=== PATIENT | female | born 1980 | race Caucasian/White ===

== ENCOUNTER 2017-05-16 07:30 | Outpatient (RCR) | payer OTHER, SELFPAY ==
--- NOTE | 2017-03-22 13:03 | HP.PTEVAL ---
Patient's Visit Information HAMLET SAMUEL is a 37 year old F referred to Physical Therapy by Stephanie POLLOCK with a diagnosis of Cervical radiculopathy down LUE. Date of Evaluation: 03/19/17 Physical Therapist: Ady Mckenzie - Visit Plan Frequency: 2x /Week Duration: 4 Weeks Plan: Start with cervical distraction with flexion positioning, progressing to cervical extension progression. Once symptoms have reduced add in postural strengthening to maintain reduction. - Subjective Subjective: Pt. is here today for her initial evaluation with diagnosis of cervical radiculapothy down her LUE. Pt. reports having increased pain over the past 6 weeks or so with pain radiating down into her hand (thumb and index finger). She reports increased pain with: looking down, reading, driving, lifting and sleeping. Pt. has decreased pain: heat, massage and sometimes with chiropractor. 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 She reports intermittent tingling in L fingers, not all the time. She doesn't report any sudden weakness in her LUE. Pt. has not had an xray or MRI at this point in time. She is hopeful to increase posture and decerase symptoms allowing for increased tolerance to all work and recreational activities. - Pain L side of cervical spine Pain Intensity (Out of 10): 3 Pain Intensity Range: 2, 6 LUE Pain Intensity (Out of 10): 1 Pain Intensity Range: 0, 3 - Objective POSTURE: Pt. has slight rounded shoulders, slight FH positioning with increased upper cervical spine ext. Pt. is able to correct with VCing. No changes in symptoms with postural correction. PALPATION: Pt. has increased tenderness to palpation of LUT, L levator scapulea, mild increase in symptoms to palpation (spring testing, PA) to C5-T1, no hypomobility noted. NEUROLOGICAL: Pt. has normal sensation to light touch, except index finger and lateral aspect of forearm. Pt. has 1+ L biceps DTR, 2+ biceps and triceps otherwise. Pt. has no upper limb tension noted. ROM: CERVICAL SPINE: flexion min loss incerase NW, ext mod loss increase NW, rotation R min/nil loss NE, rotation L min/nil loss NE, SB nil loss bilat NE, retraction mod loss increase NW and peripherization. Pt. has normal shoulder ROM bilaterally throughout without increase in symptoms. MMT: RUE- wrist/elbow- 5/5 throughout; shoulder- flexion 5-/5, abd 5-/5, ext 5/5, ER 5/5, IR 5/5. LUE- wrist/elbow 5/5 throughout; shoulder- flexion 5-/5, abd 5-/5, ext 5/5, ER 5/5, IR 5/5. CERVICAL ISOMETRICS- 5/5 throughout. - Special Tests C/S Radiculapathy - Left Upper limb tension test: Negative C/S Radiculapathy - Right Upper limb tension test: Negative C/S Radiculapathy - Left Spurlings: Positive C/S Radiculapathy - Right Spurlings: Negative C/S Radiculapathy - Left Cervical distraction: Negative C/S Radiculapathy - Right Cervical distraction: Negative C/S Radiculapathy - Left Relief test: Positive C/S Radiculapathy - Right Relief test: Negative C/S Radiculapathy - Valsalva: Negative Sharp Efrain: Negative Vertebral Artery Test: Negative Alar Ligament Test: Negative Cervical Sitting: Protrusion - Mechanical Response: No effect Cervical Sitting: Protrusion - Symptoms During Testing: No effect Cervical Sitting: Protrusion - Symptoms After Testing: No effect Cervical Sitting: Retraction - Mechanical Response: No effect Cervical Sitting: Retraction - Symptoms During Testing: Peripheralizing Cervical Sitting: Retraction - Symptoms After Testing: No worse Cervical Sitting: Retraction-Extension - Mechanical Response: No effect Cerv Sitting: Retraction-Extension - Symptoms During Testing: Increases Cerv Sitting: Retraction-Extension - Symptoms After Testing: No worse Cervical Sitting: Sidebend Right - Mechanical Response: No effect Cervical Sitting: Sidebend Right - Symptoms During Testing: No effect Cervical Sitting: Sidebend Right - Symptoms After Testing: No effect Cervical Sitting: Sidebend Left - Mechanical Response: No effect Cervical Sitting: Sidebend Left - Symptoms During Testing: No effect Cervical Sitting: Sidebend Left - Symptoms After Testing: No effect Cervical Sitting: Rotation Right - Mechanical Response: No effect Cervical Sitting: Rotation Right - Symptoms During Testing: No effect Cervical Sitting: Rotation Right - Symptoms After Testing: No effect Cervical Sitting: Rotation Left - Mechanical Response: No effect Cervical Sitting: Rotation Left - Symptoms During Testing: No effect Cervical Sitting: Rotation Left - Symptoms After Testing: No effect Cervical Sitting: Flexion - Mechanical Response: No effect Cervical Sitting: Flexion - Symptoms During Testing: Increases Cervical Sitting: Flexion - Symptoms After Testing: No worse Cervical Lying: Retraction - Mechanical Response: No effect Cervical Lying: Retraction - Symptoms During Testing: Abolishes Cervical Lying: Extension - Mechanical Response: No effect Cervical Lying: Extension - Symptoms During Testing: Decreases Cervical Lying: Extension - Symptoms After Testing: No better - Goals Goal 1:: Pt. to be I with HEP. Goal Time Frame: 4-6 Weeks Goal 2:: Pt. to have increased cervical ROM by 50% without increase in symptoms. Goal Time Frame: 4-6 Weeks Goal 3:: Pt. to sleep with 0-1/10 symptoms in her neck and LUE. Goal Time Frame: 4-6 Weeks Goal 4:: Pt. to have 0-1/10 pain with all work activities. Goal Time Frame: 4-6 Weeks Goal 5:: Pt. to demonstrate proper posture throughout PT session demonstrating improved postural awareness. Goal Time Frame: 4-6 Weeks - Rehabilitation Potential Physical Therapy Diagnosis: Pt. has signs and symptoms consistent with cervical radiculopathy down her LUE with dural signs including slight reduction in biceps reflex, but no myotomal weakness. Pt. would benefit from PT to reduce muscle tension, decrease peripheralization symptoms, improve posture and decrease pain. Rehabilitation Potential: Good - Anticipated Interventions Patient/Client Instruction: Educate patient on: Condition, Plan of Care, Risk Factors, Benefits of Fitness Program For the Purpose of:: To improve health and function, To foster healthy habits, To improve decision making, To facilitate caregiver knowledge, To improve self management, To prevent re-injury, To improve ability to perform tasks related to life management, To improve tolerance to ADL's Therapeutic Exercise to Include: Strength training, Power training, Body mechanics, Postural training, Flexibilty training, Passive ROM, Active ROM, Tiffani Exercises, Scapular Strength/Stabilization For the Purpose of:: To decrease pain, To increase ROM, To improve nutrient delivery to tissue, To increase oxygenation perfusion, To improve muscle performance and motor function, To improve ability to perform ADL's, To improve performance and independence with ADL's Manual Therapy Techniques to Include: Trigger point massage, Mobilization, Manipulation, Functional dry needling, Soft tissue mobilization For the Purpose of:: To decrease pain, To increase ROM, To improve nutrient delivery to tissue, To increase oxygenation perfusion, To improve muscle performance and motor function IF ES: Yes Cryotherapy (ice pack, ice massage): Yes Ultrasound (thermal/non thermal): Yes For the Purpose of:: To decrease pain, To increase ROM, To improve nutrient delivery to tissue, To increase oxygenation perfusion Thank you for the opportunity to evaluate your patient. For Medicare and Medicare HMO plans, please review the plan of care and approve it. It will need to be FAXED BACK to us at [phone] for Medicare purposes. Please let me know if there are questions or concerns regarding this plan of care. Physician Signature: Date:
--- NOTE | 2017-05-27 07:43 | HP.PT.NRP ---
HP - Discharge Summary (1) - Patient Information HAMLET SAMUEL was seen in my office for initial evaluation on 03/19/17. The following Plan of Care was established for this patient: Initial Frequency: 2x /Week Initial Duration: 4 Weeks - Anticipated Interventions Patient/Client Instruction: Educate patient on: Condition, Plan of Care, Risk Factors, Benefits of Fitness Program For the Purpose of:: To improve health and function, To foster healthy habits, To improve decision making, To facilitate caregiver knowledge, To improve self management, To prevent re-injury, To improve ability to perform tasks related to life management, To improve tolerance to ADL's Therapeutic Exercise to Include: Strength training, Power training, Body mechanics, Postural training, Flexibilty training, Passive ROM, Active ROM, Tiffani Exercises, Scapular Strength/Stabilization For the Purpose of:: To decrease pain, To increase ROM, To improve nutrient delivery to tissue, To increase oxygenation perfusion, To improve muscle performance and motor function, To improve ability to perform ADL's, To improve performance and independence with ADL's Manual Therapy Techniques to Include: Trigger point massage, Mobilization, Manipulation, Functional dry needling, Soft tissue mobilization For the Purpose of:: To decrease pain, To increase ROM, To improve nutrient delivery to tissue, To increase oxygenation perfusion, To improve muscle performance and motor function IF ES: Yes Cryotherapy (ice pack, ice massage): Yes Ultrasound (thermal/non thermal): Yes For the Purpose of:: To decrease pain, To increase ROM, To improve nutrient delivery to tissue, To increase oxygenation perfusion This patient was last seen in our office 05/16/17. Pertinent comments regarding their Physical therapy will appear below: Pt. was seen for her cervical radiculopathy. Pt. reported 85% improvement with manual, stretching and postural management. Pt. was to trial exercises on own. Pt. did come in and report overall body achiness, and some low back pain. Pt. was scheduled to follow up with physician at this point in time. Pt. to trial on own and talk with physician to determine best course of action at this time. At this point I will be discontinuing this patient from physical therapy. I would be happy to see this patient again in the future if found appropriate by the physician. Thank you! Ady Mckenzie
== END 2017-05-16 19:00 | disposition home or self-care (01) ==
LOC: PT 07:30
PROVIDERS: Family Provider Internal Medicine; PCP Internal Medicine; Visit Provider Internal Medicine
DX: M54.2 Cervicalgia (principal); M54.12 Radiculopathy, cervical region
CPT/HCPCS: 97035; 97110; 97140; 97161

== ENCOUNTER 2017-10-01 10:30 | Outpatient (RCR) | payer OTHER, SELFPAY ==
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
--- NOTE | 2017-07-18 12:25 | HP.PTREVAL_ITS ---
Stephanie Villalpando, It has been my pleasure to treat HAMLET SAMUEL over the last 11 visits for NECK PAIN. BACK PAIN. FIBRO FLARE.. Please see the progress note below for an update on the physical therapy plan of care! Subjective: Pt. reports I am doing pretty well today. Pt. reports overall improved R shoulder ROM and decreased pain in lumbar spine and neck. Objective/Function: Pt. tolerated all PT without adverse reaction. Pt. presents with improved posture in standing and sitting. Pt. is able to maintain this throughout PT. Pt. reports being able to complete daily activities with better tolerance at this point in time. Plan Plan: Pt. to trial exercises on land and aquatic therapy on own at this point in time. Pt. will be DC from PT in 2-3 weeks if I have not seen her during that time frame. Goals Goal 1:: DECREASE C/O NECK PAIN Goal Time Frame: 4-6 Weeks Goal Progress: Goal Met Goal 2:: DECREASE C/O UPPER AND LOW BACK PAIN Goal Time Frame: 4-6 Weeks Goal Progress: Progressing Goal 3:: IMPROVE BENDING, LIFTING, REACHING, DRIVING, WORK AND SLEEP FUNCTION Goal Time Frame: 4-6 Weeks Goal Progress: Goal Met Goal 4:: INSTRUCT IN PROPHYLAXIS Goal Time Frame: 4-6 Weeks Goal Progress: Goal Met Anticipated Interventions Patient/Client Instruction: Educate patient on: Condition, Plan of Care, Risk Factors, Benefits of Fitness Program For the Purpose of:: To improve self management Therapeutic Exercise to Include: Strength training, Body mechanics, Postural training, Flexibilty training, Passive ROM, Active ROM, Dynamic Lumbar Stabilization, Scapular Strength/Stabilization For the Purpose of:: To improve ability of physical actions for home/community/ work/leisure Manual Therapy Techniques to Include: Passive ROM, Functional dry needling, Soft tissue mobilization For the Purpose of:: To decrease pain, To increase ROM Thermo therapy (hot pack): Yes Ultrasound (thermal/non thermal): Yes For the Purpose of:: To decrease pain, To increase ROM Please do not hesitate to contact me at [phone] by phone or Fax: if you have questions or concerns regarding this new plan of care! Sincerely, Ady Mckenzie
--- NOTE | 2017-11-14 09:51 | HP.PTDCNRP_ITS ---
HP - Discharge Summary (1) - Patient Information HAMLET SAMUEL was seen in my office for initial evaluation on 05/27/17. The following Plan of Care was established for this patient: Initial Frequency: 2-3x /Week Initial Duration: 4-6 Weeks - Anticipated Interventions Patient/Client Instruction: Educate patient on: Condition, Plan of Care, Risk Factors, Benefits of Fitness Program For the Purpose of:: To improve self management Therapeutic Exercise to Include: Strength training, Body mechanics, Postural training, Flexibilty training, Passive ROM, Active ROM, Dynamic Lumbar Stabilization, Scapular Strength/Stabilization For the Purpose of:: To improve ability of physical actions for home/community/ work/leisure Manual Therapy Techniques to Include: Passive ROM, Functional dry needling, Soft tissue mobilization For the Purpose of:: To decrease pain, To increase ROM Thermo therapy (hot pack): Yes Ultrasound (thermal/non thermal): Yes For the Purpose of:: To decrease pain, To increase ROM This patient was last seen in our office 10/11/17. Pertinent comments regarding their Physical therapy will appear below: Pt. was seen for her back and neck pain. Pt. was treated with manual techniques , DN, Jovita exercises and postural strengthening. Pt. progressed as expected. Pt. has not zbigniew seen in ~1 month and will be DC from PT at this point in time. At this point I will be discontinuing this patient from physical therapy. I would be happy to see this patient again in the future if found appropriate by the physician. Thank you! Ady Mckenzie
== END 2017-10-01 19:00 | disposition home or self-care (01) ==
LOC: PT 10:30
PROVIDERS: Family Provider Internal Medicine; PCP Internal Medicine; Visit Provider Internal Medicine
DX: M79.7 Fibromyalgia (principal); M54.9 Dorsalgia, unspecified; M54.2 Cervicalgia
CPT/HCPCS: 97110; 97140; 97162; 97530

== ENCOUNTER → 2017-11-18 16:50 | Outpatient (CLI) | payer OTHER, SELFPAY ==
[2017-11-18 17:54] LABS: Absolute Lymphocyte Count 4.35 X10^3/ul (0.83-4.51); Absolute Neutrophil Count 10.4 X10^3/uL (2.0-7.7); Basophil# 0.05 X10^3/uL; Basophil% 0.3 % (0-1); Eosinophil# 0.32 X10^3/uL; Hematocrit 37.3 % (37-47); Hemoglobin 12.3 g/dl (12.0-15.0); Lymphocyte # 4.35 X10^3/ul (4.0); Lymphocyte % 27.3 % (19-41); Mean Corpuscular Hgb 27.5 pg (27.0-32.0); Mean Corpuscular Volume 83.3 fL (81-99); Monocyte# 0.81 X10^3/uL; Monocyte% 5.1 % (0-10); Neutrophil # 10.36 X10^3/uL (2.7-7.7); Neutrophil % 65.2 % (47-70); Platelet Count 486 K/mm3 (150-450); RBC Distribution Width CV 14.1 % (11.6-14.6); RBC Distribution Width SD 42.8 fl (35.1-43.9); Red Blood Count 4.48 M/mm3 (4.2-5.4); White Blood Count 15.9 K/mm3 (4.4-11.0)
[2017-11-18 18:02] LABS: POSITIVE COUNT NO; POSITIVE DIFFERENTIAL NO; POSITIVE MORPHOLOGY NO
[2017-11-18 18:03] LABS: Erythrocyte Sedimentation Rate 24 mm/hr (0-20)
[2017-11-18 18:18] LABS: Vitamin B12 1041 pg/mL (211-911); Vitamin D,25 Hydroxy 32.2 ng/mL (29.95-100.01)
[2017-11-18 18:51] LABS: ALB/GLOB Ratio 0.9 RATIO (0.9-2.4); AST(SGOT) 17 U/L (15-37); Alanine Aminotransfer ALT/SGPT 29 U/L (13-56); Albumin, Serum 3.7 g/dL (3.2-5.0); Alkaline Phosphatase 91 U/L (45-117); Anion Gap 12 (5-15); BUN 17 mg/dL (7-18); BUN/Creat Ratio 17.7 RATIO (10-20); Calcium,Total 9.3 mg/dL (8.5-10.1); Chloride 100 mmol/L (98-107); Creatinine, Serum 0.96 mg/dL (0.55-1.02); EST Glomerular Filtration Rate 69 mL/min (>60); Est Glom Filt Rate - Afr Amer 83 mL/min (>60); Globulin 4.2 g/dL (2.2-4.2); Glucose 78 mg/dL (74-106); Protein, Total 7.9 g/dL (6.4-8.2); Rheumatoid Factor < 10.0 IU/mL (<15); Sodium Level 139 mmol/L (136-145); Thyroid Stim Hormone (TSH) 2.93 uIU/mL (0.358-3.74)
[2017-11-21 09:04] LABS: ANTINUCLEAR ANTIBODIES DIRECT Negative (Negative)
== END ==
PROVIDERS: Family Provider Internal Medicine; PCP Internal Medicine; Visit Provider Internal Medicine Rheumatology
DX: R53.83 Other fatigue (principal)
CPT/HCPCS: 36415; 80053; 82306; 82607; 82746; 84443; 85025; 85652; 86038; 86140; 86431

== ENCOUNTER → 2017-12-30 15:57 | Outpatient (CLI) | payer OTHER, SELFPAY ==
--- NOTE | 2017-12-30 15:59 | ECHOD_ITS ---
Reason For Study: VALVULAR HEART DISEASE Procedure This was a 2D Doppler, Color Flow transthoracic echocardiogram. The study was technically difficult. Exam performed in department. Left Ventricle Normal LV size. Left ventricular systolic function is normal. The estimated ejection fraction is 60 %. No evidence for diastolic dysfunction. No regional wall motion abnormalities noted. Right Ventricle Normal RV size. Normal systolic function. Atria Normal left atrium. Normal right atrium. Mitral Valve Normal mitral valve. Tricuspid Valve Normal tricuspid valve. Mild (1+) tricuspid valve insufficiency. Pulmonary artery systolic pressure is 26 mmHg. Aortic Valve Trisinus/trileaflet aortic valve. Pulmonic Valve Normal pulmonic valve. Great Vessels Normal aortic root. Pericardium/Pleural No pericardial effusion. MMode/2D Measurements & Calculations LVIDd: 4.0 cm IVSd: 0.91 cm Ao root diam: 3.1 cm LVIDs: 3.0 cm LVPWd: 0.95 cm RVDd: 3.1 cm FS: 24.9 % LAV(MOD-bp): 42.1 ml LVAd ap4: 25.9 cm2 SV(MOD-sp4): 39.9 ml LAV(MOD-bp) Indexed: 23.1 ml/m2 EDV(MOD-sp4): 73.8 ml LAV(MOD-sp2): 46.3 ml EDV(sp4-el): 76.2 ml LAV(MOD-sp4): 35.8 ml LVAs ap4: 15.5 cm2 ESV(MOD-sp4): 33.9 ml ESV(sp4-el): 34.0 ml EF(MOD-sp4): 54.1 % EF(sp4-el): 55.3 % SV(sp4-el): 42.2 ml LA A4 area: 15.3 cm2 LA dimension(2D): 4.1 cm RA A4 area: 13.8 cm2 Time Measurements MV dec time: 0.26 sec Doppler Measurements & Calculations MV E max mayur: 86.1 cm/sec Lat Peak E' Mayur: 10.6 cm/sec Med Peak E' Mayur: 7.2 cm/sec MV A max mayur: 77.7 cm/sec E/E' lat: 8.1 E/E' med: 12.0 MV E/A: 1.1 Ao V2 max: 139.2 cm/sec LV V1 max: 101.7 cm/sec PA V2 max: 98.2 cm/sec Ao max P.8 mmHg LV V1 max P.1 mmHg TR max mayur: 235.2 cm/sec TR max P.4 mmHg Interpretation Summary Normal LV size. Left ventricular systolic function is normal. The estimated ejection fraction is 60 %. No evidence for diastolic dysfunction. Ordering Physician: Kvng Sainz Referring Physician: MONA OBRIEN Performed By: Michelle Adam, SANTOS, RVT
== END ==
PROVIDERS: Family Provider Internal Medicine; PCP Internal Medicine; Referring Provider Internal Medicine Cardiovascular Disease; Visit Provider Internal Medicine Cardiovascular Disease
DX: I07.1 Rheumatic tricuspid insufficiency (principal); I10 Essential (primary) hypertension; I42.8 Other cardiomyopathies; I34.0 Nonrheumatic mitral (valve) insufficiency
CPT/HCPCS: 93306

== ENCOUNTER 2018-01-14 16:30 | Outpatient (RCR) | payer OTHER, SELFPAY ==
--- NOTE | 2017-12-11 17:25 | HP.PTEVAL_ITS ---
Patient's Visit Information HAMLET SAMUEL is a 37 year old F referred to Physical Therapy by Missy Solis with a diagnosis of LBP. Date of Evaluation: 12/11/17 Physical Therapist: Cassandra Cisneros - Visit Plan Frequency: 2x /Week Duration: 4 Weeks Plan: 2X/ week for 4 weeks for Core stability, body mechanics, postural stability with HEP - Subjective Subjective: Last Saturday she was doing Yoga with Pigme goats and she was fine and then she went to hot die picker a laundry basket the wrong way and she had instant pain that was hot searing pain along the LB. She has been since to the Chiropractor and she was out at L4/L5. Within 4 hours of the sdjustment she saw some improvement but is not better yet. Currently she has a dull ache along her L- spine and she is uncomfortable with bending fw and she has to bend her knees to get something off the floor. She is in one of the pool classes 2X/ week and she is not doing much at this time. Pt has no LE numbness and tingling. She is sleeping approx the same. SHe has Fibro and it messes wiht her sleep anyways. She walked a lot today and has noticed that her gait has shortened up a lot throughtout the day. She has had several x-rays and MRI's in the past she is dealing with scoliosis....chiropractor is helping with that as well as her own posture practices. She has not injured her back like this before but has been dealing with back pain in the past. 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 - Pain back pain Pain Intensity (Out of 10): 5 - Objective Gait: walks with normal gait pattern, caught L toe once during the walk. Pt is able to heel and toe walk without issue. Trunk AROM: flexion 100%, ext 25%, SB B 50%, Rot to the L 50% and to the R 75%. Pt is able to do almost full AROM press up. Patellar DTR's 2+/3 B. LE MMT: hip flex B 4-/5 B, hip ext 4/5 B, hip abd B 4/5 B, B knee flex and B knee ext 4+/5. SLR Test: -B - Goals Goal 1:: I HEP Goal Time Frame: 4-6 Weeks Goal 2:: Decrease back pain to 1/10 with ADL's Goal Time Frame: 4-6 Weeks Goal 3:: Be able to hot die picker laundry basket from the floor with proper form without backpain Goal Time Frame: 4-6 Weeks - Rehabilitation Potential Rehabilitation Potential: Good - Anticipated Interventions Patient/Client Instruction: Educate patient on: Plan of Care For the Purpose of:: To decrease pain, To increase ROM, To improve nutrient delivery to tissue, To improve muscle performance and motor function, To improve ability to perform ADL's, To increase tolerance to activity/condition/position, To improve performance and independence with ADL's Therapeutic Exercise to Include: Strength training, Body mechanics, Postural training, Active ROM, Dynamic Lumbar Stabilization, Tiffani Exercises For the Purpose of:: To decrease pain, To increase ROM, To improve nutrient delivery to tissue, To improve muscle performance and motor function, To improve ability to perform ADL's, To increase tolerance to activity/condition/position, To improve performance and independence with ADL's, To improve health of tissue Ultrasound (thermal/non thermal): Yes For the Purpose of:: To decrease pain, To improve nutrient delivery to tissue Thank you for the opportunity to evaluate your patient. For Medicare and Medicare HMO plans, please review the plan of care and approve it. It will need to be FAXED BACK to us at [phone] for Medicare purposes. Please let me know if there are questions or concerns regarding this plan of care. Physician Signature: Date:
--- NOTE | 2018-01-14 16:48 | HP.PTDCSUM_ITS ---
HP - PT D/C Summary It has been my pleasure to treat HAMLET SAMUEL under orders from Missy Solis NP, for the diagnosis of LBP for a total of 6 visit(s). Discharge Date: 01/14/18 Please see the following information for a summary of their discharge status. - Subjective Subjective: Pt had to drive 9 hours for the last 4 days and sitting at a confrence....so she is in pain from center of back to R buttcheek. She got her TENS unit the other day. 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 without pain - Pain back pain Pain Intensity (Out of 10): 5 - Overall Improvement % Improvement: 90 - Objective Objective/Function: Pt was able to do all her exercises today with good form and without complaint of pain - Goals Goal 1:: I HEP Goal Progress: Goal Met Goal 2:: Decrease back pain to 1/10 with ADL's Goal Progress: Progressing Goal 3:: Be able to milk pickup driver laundry basket from the floor with proper form without backpain Goal Progress: Goal Met - Plan Plan: DC PT to [facility] - D/C Information Discharge Comments: DC PT to [facility] and pt has TENS unit for home If there are questions or concerns regarding this patient's physical therapy, please feel free to call me at [phone]. Thank you for the referral of this patient. Sincerely, Cassandra Cisneros
== END 2018-01-14 19:00 | disposition home or self-care (01) ==
LOC: PT 16:30
PROVIDERS: Family Provider Internal Medicine; PCP Internal Medicine; Referring Provider Nurse Practitioner; Visit Provider Nurse Practitioner
DX: M54.5 Low back pain (principal)
CPT/HCPCS: 97110; 97161

== ENCOUNTER → 2018-03-06 15:33 | Outpatient (CLI) | payer OTHER, SELFPAY ==
[2018-01-17 08:41] VITALS: BMI 34.7
[2018-03-06 17:53] LABS: Absolute Lymphocyte Count 4.01 X10^3/ul (0.83-4.51); Absolute Neutrophil Count 10.3 X10^3/uL (2.0-7.7); Basophil# 0.04 X10^3/uL; Basophil% 0.3 % (0-1); Eosinophil# 0.39 X10^3/uL; Eosinophils% 2.5 % (0-5); Hematocrit 40.2 % (37-47); Hemoglobin 13.4 g/dl (12.0-15.0); Lymphocyte # 4.01 X10^3/ul (4.0); Lymphocyte % 25.8 % (19-41); Mean Corp Hgb Conc 33.3 g/gl (32-36); Mean Corpuscular Hgb 27.6 pg (27.0-32.0); Mean Corpuscular Volume 82.9 fL (81-99); Mean Platelet Vol. 8.9 fl (6.2-12.0); Monocyte% 5.1 % (0-10); Neutrophil # 10.29 X10^3/uL (2.7-7.7); Neutrophil % 66.2 % (47-70); Platelet Count 536 K/mm3 (150-450); RBC Distribution Width CV 14.9 % (11.6-14.6); RBC Distribution Width SD 45.6 fl (35.1-43.9); Red Blood Count 4.85 M/mm3 (4.2-5.4); White Blood Count 15.6 K/mm3 (4.4-11.0)
[2018-03-06 17:55] LABS: POSITIVE COUNT NO; POSITIVE DIFFERENTIAL NO; POSITIVE MORPHOLOGY NO
[2018-03-06 18:02] LABS: Anion Gap 11 (5-15); BUN 19 mg/dL (7-18); BUN/Creat Ratio 17.9 RATIO (10-20); Calcium,Total 8.8 mg/dL (8.5-10.1); Chloride 101 mmol/L (98-107); Creatinine, Serum 1.06 mg/dL (0.55-1.02); EST Glomerular Filtration Rate 62 mL/min (>60); Est Glom Filt Rate - Afr Amer 75 mL/min (>60); Glucose 73 mg/dL (74-106); Potassium 2.9 mmol/L (3.5-5.1); Sodium Level 138 mmol/L (136-145)
[2018-03-10 03:04] LABS: QNTFERON TB Mitogen Value > 10.00 IU/mL (.); QNTFERON TB Nil Value 0.02 IU/mL (.); QNTFERON TB1+ Ag Value 0.02 IU/mL (.); QNTFERON TB2+ Ag Value 0.02 IU/mL (.)
[2018-03-10 08:13] LABS: HEPATITIS B SURFACE AG Negative (Negative); Hep C Antibodies 0.2 s/co ratio (0.0-0.9); QNTIFERON TB Positive Criteria Negative (Negative)
== END ==
LOC: MTLAB 15:34
PROVIDERS: Family Provider Internal Medicine; PCP Internal Medicine; Referring Provider Dermatology Pediatric Dermatology; Visit Provider Dermatology Pediatric Dermatology
DX: L40.0 Psoriasis vulgaris (principal); Z79.899 Other long term (current) drug therapy
CPT/HCPCS: 36415; 80048; 85025; 86480; 86803; 87340

== ENCOUNTER → 2018-04-16 16:08 | Outpatient (CLI) | payer OTHER, SELFPAY ==
[2018-01-17 08:41] VITALS: BMI 34.7
[2018-04-16 17:53] LABS: Progesterone Level 0.29 ng/mL (See Comment)
[2018-04-21 11:27] LABS: HPV Reflexed? NOT INDICATED
== END ==
PROVIDERS: Visit Provider Obstetrics & Gynecology
DX: Z12.4 Encounter for screening for malignant neoplasm of cervix (principal); N94.3 Premenstrual tension syndrome
CPT/HCPCS: 36415; 84144; 88175; G0145

== ENCOUNTER → 2018-08-28 16:24 | Outpatient (CLI) | payer OTHER, SELFPAY ==
[2018-01-17 08:41] VITALS: BMI 34.7
--- NOTE | 2018-08-28 16:27 | BI_ITS ---
MAMMOGRAPHY - BILATERAL SCREENING 3-D TOMOSYNTHESIS REASON FOR EXAM: Female, 38 years old. Bilateral Screening 3-D tomosynthesis PERTINENT HISTORY: No significant family history. TECHNIQUE: 2-D mammograms and 3-D Tomosynthesis of the breast (s) were performed. CAD was performed. COMPARISON: None. Baseline examination. FINDINGS: The breast composition is almost entirely fat. Scattered benign calcifications are seen. No dense spiculated masses or suspicious microcalcifications are identified. No architectural distortion is identified. There is no skin thickening or retraction. There has been no significant change since the prior study. BI/SCREEN MAMM (CAD) W/YA BILAT IMPRESSION: No mammographic signs of malignancy. Routine yearly mammograms recommended. ASSESSMENT CATEGORY: BIRADS Category 2: Benign. A letter regarding these results will be sent to the patient by the facility within 30 days. FOLLOW UP RECOMMENDATION: Yearly follow up mammogram recommended. (A) Approximately 10% of breast cancers are not detected by mammography. A normal mammogram should not delay biopsy of a clinically suspicious abnormality. Electronically Signed: Nathan Parra MD at 17:31 EDT , Service support ,
== END ==
PROVIDERS: Family Provider Internal Medicine; PCP Internal Medicine; Referring Provider Obstetrics & Gynecology; Visit Provider Obstetrics & Gynecology
DX: Z12.31 Encounter for screening mammogram for malignant neoplasm of breast (principal)
CPT/HCPCS: 77063; 77067

== ENCOUNTER → 2018-09-08 12:07 | Outpatient (CLI) | payer OTHER, SELFPAY ==
[2018-01-17 08:41] VITALS: BMI 34.7
[2018-09-08 13:47] LABS: Absolute Lymphocyte Count 3.17 X10^3/ul (0.83-4.51); Absolute Neutrophil Count 7.3 X10^3/uL (2.0-7.7); Basophil# 0.05 X10^3/uL; Basophil% 0.4 % (0-1); Eosinophil# 0.59 X10^3/uL; Hematocrit 40.1 % (37-47); Hemoglobin 13.8 g/dl (12.0-15.0); Lymphocyte # 3.17 X10^3/ul (4.0); Mean Corp Hgb Conc 34.4 g/gl (32-36); Mean Corpuscular Hgb 28.5 pg (27.0-32.0); Mean Corpuscular Volume 82.9 fL (81-99); Mean Platelet Vol. 9.6 fl (6.2-12.0); Monocyte# 0.64 X10^3/uL; Monocyte% 5.5 % (0-10); Neutrophil # 7.26 X10^3/uL (2.7-7.7); Neutrophil % 61.8 % (47-70); Platelet Count 495 K/mm3 (150-450); RBC Distribution Width CV 14.6 % (11.6-14.6); Red Blood Count 4.84 M/mm3 (4.2-5.4); White Blood Count 11.7 K/mm3 (4.4-11.0)
[2018-09-08 13:51] LABS: POSITIVE COUNT NO; POSITIVE DIFFERENTIAL NO; POSITIVE MORPHOLOGY NO
[2018-09-08 14:41] LABS: ALB/GLOB Ratio 0.9 RATIO (0.9-2.4); AST(SGOT) 14 U/L (15-37); Alanine Aminotransfer ALT/SGPT 16 U/L (13-56); Albumin, Serum 3.6 g/dL (3.2-5.0); Alkaline Phosphatase 66 U/L (45-117); Anion Gap 5 (5-15); BUN 17 mg/dL (7-18); BUN/Creat Ratio 19.3 RATIO (10-20); Chloride 103 mmol/L (98-107); Creatinine, Serum 0.88 mg/dL (0.55-1.02); EST Glomerular Filtration Rate 76 mL/min (>60); Est Glom Filt Rate - Afr Amer 92 mL/min (>60); Glucose 82 mg/dL (74-106); Potassium 2.7 mmol/L (3.5-5.1); Protein, Total 7.6 g/dL (6.4-8.2); Sodium Level 137 mmol/L (136-145)
== END ==
PROVIDERS: Family Provider Internal Medicine; PCP Internal Medicine; Referring Provider Physician Assistant; Visit Provider Physician Assistant
DX: L40.0 Psoriasis vulgaris (principal); Z79.899 Other long term (current) drug therapy
CPT/HCPCS: 36415; 80053; 85025

== ENCOUNTER 2018-09-18 09:00 | Outpatient (RCR) | payer OTHER, SELFPAY ==
[2018-01-17 08:41] VITALS: BMI 34.7
== END 2018-09-18 19:00 | disposition home or self-care (01) ==
LOC: PT 09:00
PROVIDERS: Family Provider Internal Medicine; PCP Internal Medicine; Referring Provider Internal Medicine; Visit Provider Internal Medicine
DX: M79.7 Fibromyalgia (principal)

== ENCOUNTER 2019-01-14 16:35 | Outpatient (RCR) | payer SELFPAY ==
[2018-11-20 11:53] VITALS: BMI 34.7
== END 2019-01-14 19:00 | disposition home or self-care (01) ==
LOC: PT 16:35
PROVIDERS: Family Provider Internal Medicine; PCP Internal Medicine
DX: R69 Illness, unspecified (principal)

== ENCOUNTER 2019-01-24 15:32 | Emergency (ER) | payer OTHER, SELFPAY ==
[2019-01-20 12:48] VITALS: BMI 36.2
[2019-01-24 15:33] VITALS: BP 140/106; PULSE 109; RESP 17; TEMP 35.8; O2SAT 98; BMI 35.7
--- NOTE | 2019-01-24 15:49 | EKG12_ITS ---
Test Reason : CP Blood Pressure : / mmHG Vent. Rate : 096 BPM Atrial Rate : 096 BPM P-R Int : 144 ms QRS Dur : 078 ms QT Int : 362 ms P-R-T Axes : 012 -18 -02 degrees QTc Int : 457 ms Normal sinus rhythm Moderate voltage criteria for LVH, may be normal variant Borderline ECG Confirmed by LEXIE PERKINS, ANDREI ([id number]), restaurant expeditor SO [employer] ([id number]) on 01/27/2019 10:03:15 AM Referred By: FAN Confirmed By:ANDREI OWEN MD
--- NOTE | 2019-01-24 15:50 | ED.DCSUM_ITS ---
- ER Visit Summary Date of Service: 01/24/19 Chief Complaint: Shortness of breath and hypertension History of Present Illness: The patient is a 39 F who presents with shortness of breath and hypertension that began today. Patient states that began approximately 2 hours prior to arrival. Patient states she woke up from a nap and felt short of breath. Patient states she has some discomfort in her left upper chest. Patient states her breathing is worse with exertion. Patient states it got better when she took a shower. Patient denies any nausea or vomiting. Patient denies any diaphoresis. Patient denies any fevers or chills. Patient denies any cough. Patient noted her blood pressure to be slightly elevated today with a pressure of 150 systolic. Physical Examination: Vital signs are stable. Patient's blood pressure here is 140/106. Patient is afebrile. Patient is in no acute distress. Oral mucosa is pink and moist. Neck is supple. Trachea is midline. There is no JVD. Heart was regular rate and rhythm. Lungs are clear and equal bilaterally. Abdomen is soft and nontender. Extremities are intact. There is no calf tenderness or edema. Cranial nerves II through XII are intact. There are no focal motor or sensory deficits noted. Test Results: EKG showed a normal sinus rhythm with a rate of 96. There are no acute ST or T wave changes. It was unchanged compared to previous EKG dated 01/21/2015. CBC showed a mild leukocytosis of 13.7. Platelets were slightly elevated at 509. Basic metabolic profile was essentially within normal limits. Troponin and BNP were normal. PA and lateral chest x-ray was obtained. There is no acute process noted. This was interpreted by the radiologist and myself. Emergency Department Course and Treatment: Patient felt better on reevaluation. She was instructed to follow-up with her primary care physician in 5 to 7 days. Patient was instructed to return if worse in any way. Patient understood and was agreeable with the plan. All questions were answered. Disposition: Discharge home Impression: 1. Hypertension 2. Viral upper respiratory infection This note was generated with [employer] software. It may contain incorrect words, spelling, and punctuation that were not noted in review of the chart prior to signing ED Disposition - Plan for ED Patient: Disposition: Home or Assisted Living Diagnosis: Viral upper respiratory infection, Essential hypertension Instructions: HYPERTENSION, Established, URI, Viral, No Abx (Adult) Referrals: Stephanie Villalpando DO [Primary Care Provider] - 5-7 Days
--- NOTE | 2019-01-24 16:05 | RAD_ITS ---
STUDY: X-RAY CHEST REASON FOR EXAM: Female, 39 years old. Hypertension and shortness of breath TECHNIQUE: PA and lateral views of the chest. COMPARISON: 05/05/2015 FINDINGS: The lungs are clear and expanded. There is no demonstrated pleural abnormality. Normal size heart. Normal mediastinum and se. Normal visualized pulmonary arteries. Normal visualized aortic arch and descending thoracic aorta. Normal visualized thoracic spine. Normal visualized ribs, clavicles, and shoulders. There is no demonstrated abnormality of the visualized soft tissue structures of the upper abdomen. RAD/Chest PA and Lateral IMPRESSION: Normal x-ray examination of the chest. Electronically Signed: Ned Altamirano MD (Bro[place]) at 16:21 EST , Service support ,
[2019-01-24 16:15] LABS: Absolute Lymphocyte Count 3.49 X10^3/uL (0.83-4.51); Absolute Neutrophil Count 8.8 X10^3/uL (2.0-7.7); Basophil# 0.08 X10^3/uL; Basophil% 0.6 % (0-1); Eosinophil# 0.62 X10^3/uL; Eosinophils% 4.5 % (0-5); Hematocrit 40.4 % (37-47); Lymphocyte # 3.49 X10^3/ul (4.0); Lymphocyte % 25.5 % (19-41); Mean Corp Hgb Conc 34.7 g/dL (32-36); Mean Corpuscular Hgb 29.4 pg (27.0-32.0); Mean Corpuscular Volume 84.7 fL (81-99); Monocyte# 0.65 X10^3/uL; Monocyte% 4.7 % (0-10); NRBC Flagged by Analyzer 0 % (0-5); Neutrophil # 8.83 X10^3/uL (2.7-7.7); Neutrophil % 64.5 % (47-70); Platelet Count 509 K/mm3 (150-450); RBC Distribution Width CV 13.5 % (11.6-14.6); RBC Distribution Width SD 42.1 fl (35.1-43.9); Red Blood Count 4.77 M/mm3 (4.2-5.4); White Blood Count 13.7 K/mm3 (4.4-11.0)
[2019-01-24 16:29] LABS: Anion Gap 6 (5-15); BUN 16 mg/dL (7-18); Chloride 109 mmol/L (98-107); Creatinine, Serum 0.89 mg/dL (0.55-1.02); EST Glomerular Filtration Rate 75 mL/min (>60); Est Glom Filt Rate - Afr Amer 91 mL/min (>60); Estimated Creatinine Clearance 64.04 ml/min; Glucose 102 mg/dL (74-106); Potassium 4.1 mmol/L (3.5-5.1); Sodium Level 140 mmol/L (136-145)
[2019-01-24 16:46] LABS: BNP,B-Type NATRIURETIC PEPTIDE 5.4 pg/mL (0-100)
[2019-01-24 17:23] VITALS: BP 129/91; PULSE 67; RESP 16; O2SAT 99
== END 2019-01-24 17:24 | disposition home or self-care (01) ==
PROVIDERS: Emergency Provider Emergency Medicine; Family Provider Internal Medicine; PCP Internal Medicine
DX: J06.9 Acute upper respiratory infection, unspecified (principal); I10 Essential (primary) hypertension; M79.7 Fibromyalgia; Z87.891 Personal history of nicotine dependence
CPT/HCPCS: 71046; 80048; 83880; 84484; 85025; 93005; 99284; A4216

== ENCOUNTER → 2019-04-13 16:02 | Outpatient (CLI) | payer OTHER, SELFPAY ==
[2019-04-13 18:13] LABS: Absolute Lymphocyte Count 3.75 X10^3/uL (0.83-4.51); Absolute Neutrophil Count 8.4 X10^3/uL (2.0-7.7); Basophil# 0.08 X10^3/uL; Basophil% 0.6 % (0-1); Eosinophil# 0.92 X10^3/uL; Eosinophils% 6.6 % (0-5); Hematocrit 41.1 % (37-47); Hemoglobin 13.6 g/dL (12.0-15.0); Lymphocyte # 3.75 X10^3/ul (4.0); Lymphocyte % 26.8 % (19-41); Mean Corp Hgb Conc 33.1 g/dL (32-36); Mean Corpuscular Hgb 27.9 pg (27.0-32.0); Mean Corpuscular Volume 84.4 fL (81-99); Mean Platelet Vol. 9.6 fl (6.2-12.0); Monocyte# 0.83 X10^3/uL; Monocyte% 5.9 % (0-10); NRBC Flagged by Analyzer 0 % (0-5); Neutrophil # 8.37 X10^3/uL (2.7-7.7); Neutrophil % 59.7 % (47-70); Platelet Count 473 K/mm3 (150-450); RBC Distribution Width CV 14.4 % (11.6-14.6); RBC Distribution Width SD 44.1 fl (35.1-43.9); Red Blood Count 4.87 M/mm3 (4.2-5.4)
[2019-04-13 18:32] LABS: Anion Gap 6 (5-15); BUN 21 mg/dL (7-18); BUN/Creat Ratio 19.4 RATIO (10-20); Calcium,Total 9.5 mg/dL (8.5-10.1); Chloride 102 mmol/L (98-107); Creatinine, Serum 1.08 mg/dL (0.55-1.02); EST Glomerular Filtration Rate 60 mL/min (>60); Est Glom Filt Rate - Afr Amer 73 mL/min (>60); Glucose 73 mg/dL (74-106); Potassium 3.3 mmol/L (3.5-5.1); Sodium Level 135 mmol/L (136-145)
[2019-04-15 20:07] LABS: QNTFERON TB Mitogen Value > 10.00 IU/mL (.); QNTFERON TB Nil Value 0.02 IU/mL (.); QNTFERON TB1+ Ag Value 0.02 IU/mL (.); QNTFERON TB2+ Ag Value 0.03 IU/mL (.)
[2019-04-15 20:38] LABS: QNTIFERON TB Positive Criteria Negative (Negative)
== END ==
PROVIDERS: PCP Internal Medicine; Referring Provider Physician Assistant; Visit Provider Physician Assistant
DX: L40.0 Psoriasis vulgaris (principal); Z79.899 Other long term (current) drug therapy
CPT/HCPCS: 36415; 80048; 85025; 86480

== ENCOUNTER → 2019-04-20 16:55 | Outpatient (CLI) | payer OTHER, SELFPAY ==
[2019-04-20 18:16] LABS: Progesterone Level 0.42 ng/mL (See Comment)
== END ==
PROVIDERS: PCP Internal Medicine; Visit Provider Obstetrics & Gynecology
DX: F39 Unspecified mood [affective] disorder (principal)
CPT/HCPCS: 36415; 84144

== ENCOUNTER 2019-08-01 12:42 | Emergency (ER) | payer OTHER, SELFPAY ==
[2019-08-01 12:42] VITALS: BP 162/108; PULSE 114; RESP 16; TEMP 36.6; O2SAT 96; BMI 37.5
--- NOTE | 2019-08-01 12:50 | CT_ITS ---
STUDY: CT ABDOMEN AND PELVIS WITH CONTRAST REASON FOR EXAM: Female, 39 years old. LLQ pain intermittently x 6 weeks, diarrhea, elevated WBC. Hx fibromyalgia, hypertension, CHF. RADIATION DOSAGE (If Supplied By Facility): CTDIvol = ( 19.61 ) mGy, DLP = ( 1148.76 ) mGycm TECHNIQUE: Transaxial images were obtained from the dome of the diaphragm to the symphysis pubis without oral contrast. IV 100mL Isovue-300 was administered. Sagittal and coronal images were reconstructed. Individualized dose optimization techniques were used for this CT. COMPARISON: None. FINDINGS: The visualized lung bases are unremarkable. The visualized portions of the heart are within normal limits. Normal liver. Normal gallbladder and extrahepatic biliary system. Normal spleen. Normal pancreas. Normal bilateral adrenal glands. Normal right kidney. Normal left kidney. Normal visualized stomach. Normal small intestine. Normal colon. The appendix is visualized and appears normal. Normal abdominal aorta. Normal inferior vena cava. Normal retroperitoneum. Normal urinary bladder. Normal visualized uterus. There is a small umbilical hernia containing fat. Normal osseous structures. CT/Abdomen/Pelvis WITH Contrast IMPRESSION: No definite acute or significant abnormality seen. Electronically Signed: Hugh Spears MD at 15:16 EDT , Service support ,
--- NOTE | 2019-08-01 12:51 | ED.DCSUM_ITS ---
History of Present Illness Chief Complaint: Abd Pain Informant: Patient Onset: Yesterday Current Severity: Moderate Maximum Severity: Moderate Narrative: Patient presents with left lower quadrant pain that started yesterday. She does report having diarrhea. No fever or chills. She states 6 weeks ago she had similar pain but it resolved after taking anti-inflammatories and monitor during her diet. She denies urinary symptoms. She is a history of ovarian cyst but states this does not feel similar. Last menstrual cycle was 1 week ago. - Past Medical History (1) CHF (congestive heart failure) Status: Chronic (2) Ovarian cyst Status: Resolved (3) Essential hypertension Status: Chronic (4) AVNRT (AV nicole re-entry tachycardia) Status: Resolved (5) Non-ischemic cardiomyopathy Status: Resolved Past Medical History - Allergies and Home Meds Allergies/Adverse Reactions: Allergies ramipril Allergy (Verified 08/01/19 12:44) Vomiting fluconazole [From Diflucan] Adverse Reaction (Verified 08/01/19 12:44) Nausea Primary Care Physician: Stephanie Villalpando DO [Primary Care Provider] - Prior records reviewed: Yes Surgical History: no surgical history Lives: Spouse/ Significant Other Smoking Status: Former smoker Review of Systems General: Denies: Chills, Fever Eyes: Denies: Visual changes - bilaterally ENT: Denies: Bilateral ear pain Cardiovascular: Denies: Chest pain Respiratory: Denies: Dyspnea, Cough Gastrointestinal: Reports: Abdominal pain, Diarrhea. Denies: Nausea, Vomiting Genitourinary: Denies: Dysuria, Frequency Musculoskeletal: Denies: Back pain, Extremity Pain Skin: Denies: Rash Neurological: Denies: Headache Hematologic: Denies: Easy bruising, Easy bleeding Allergy: Denies: Uticaria Physical Exam Vital Signs/Narrative: Vital Signs Temp Pulse Resp BP Pulse Ox 08/01/19 12:42 97.9 F 114 H 16 162/108 H 96 Inital Vital Signs reviewed: Yes General: Well nourished, Well developed Head: Normocephalic ENT: Moist mucous membranes Neck: Supple Cardiovascular: Regular rate, Regular rhythm Respiratory: No distress, CTA bilaterally Abdomen: Soft, Tender - LLQ, Hypoactive bowel sounds. Negative for: Guarding, Rebound tenderness Extremities: Nontender Skin: Normal color, No rash Neurological: Alert, Oriented x3 Psychological: Normal affect Diagnostic/Tx/Re-eval Impressions Abdomen/Pelvis CT 08/01/19 12:50 IMPRESSION: No definite acute or significant abnormality seen. Electronically Signed: Hugh Spears MD at 15:16 EDT , Service support , 08/01/19 12:50 Abdomen/Pelvis WITH Contrast [CT] Stat Laboratory Results 08/01/19 08/01/19 08/01/19 13:00 13:05 13:05 WBC 15.1 H RBC 4.72 Hgb 13.2 Hct 40.5 MCV 85.8 MCH 28.0 MCHC 32.6 RDW Std Deviation 42.2 RDW Coeff of [place] 13.5 Plt Count 470 H MPV 9.0 Immature Gran % (Auto) 0.200 Neut % (Auto) 61.7 Lymph % (Auto) 28.0 [place] % (Auto) 4.8 Eos % (Auto) 4.8 Baso % (Auto) 0.5 Absolute Neuts (auto) 9.3 H Absolute Lymphs (auto) 4.24 Nucleated RBC % 0 Sodium 139 Potassium 3.5 Chloride 106 Carbon Dioxide 26.0 Anion Gap 7 BUN 11 Creatinine 0.92 Estim Creat Clear Calc 61.95 Est GFR (MDRD) Af Amer 87 Est GFR (MDRD) Non-Af 72 BUN/Creatinine Ratio 12.0 Glucose 82 Calcium 8.9 Serum , Qual Urine Color Yellow Urine Clarity Sl. Cloudy Urine pH 6.0 Ur Specific [place] 1.015 Urine Protein 30 H Urine Glucose (UA) Normal Urine Ketones 5 H Urine Occult Blood 10 H Urine Nitrite Negative Urine Bilirubin Negative Urine Urobilinogen 1 H Ur Leukocyte Esterase 100 H Urine RBC 0 SEEN Urine WBC 0-5 SEEN Ur Squamous Epith Cells 5-10 SEEN Ur Renal Epithelial Cell 0-5 SEEN Amorphous Sediment 1+ Urine Bacteria 3+ Urine Mucus 0 SEEN 08/01/19 13:05 WBC RBC Hgb Hct MCV MCH MCHC RDW Std Deviation RDW Coeff of [place] Plt Count MPV Immature Gran % (Auto) Neut % (Auto) Lymph % (Auto) [place] % (Auto) Eos % (Auto) Baso % (Auto) Absolute Neuts (auto) Absolute Lymphs (auto) Nucleated RBC % Sodium Potassium Chloride Carbon Dioxide Anion Gap BUN Creatinine Estim Creat Clear Calc Est GFR (MDRD) Af Amer Est GFR (MDRD) Non-Af BUN/Creatinine Ratio Glucose Calcium Serum , Qual NEGATIVE Urine Color Urine Clarity Urine pH Ur Specific [place] Urine Protein Urine Glucose (UA) Urine Ketones Urine Occult Blood Urine Nitrite Urine Bilirubin Urine Urobilinogen Ur Leukocyte Esterase Urine RBC Urine WBC Ur Squamous Epith Cells Ur Renal Epithelial Cell Amorphous Sediment Urine Bacteria Urine Mucus - Medical Decision Making Patient was given morphine, Zofran, and IV fluids here. Test results are discussed with her at bedside. This time she does have bacteria noted in her urine, however there are no significant white cells and large number of epithelial cells are noted. She is had no vaginal discharge. There is no significant inflammation noted in left lower quadrant to explain her current symptoms. She advised to follow bland diet. She will be given prescription for [place] to help control pain. She is to return for worsening pain, fever, any ot her concerns. ED Disposition - Plan for ED Patient: Disposition: Home or Assisted Living Diagnosis: Abdominal pain Instructions: ED Abdominal Pain Unkn Cause Fem Prescriptions: Hydrocodone Bitart/Apap 5-325 [[place] 5MG-325MG] 1 tablet PO Q6H PRN PRN 3 Days #10 tablet PRN Reason: Pain Transmission Status: Received by [id number] Referrals: Stephanie Villalpando DO [Primary Care Provider] - 1 Week if not improving
[2019-08-01 13:03] LABS: Mucous, Urine 0 SEEN /hpf (<or=2+); Red Blood Cells-Urine 0 SEEN /hpf (0-5)
[2019-08-01 13:10] LABS: Color, Urine Yellow (Yellow); Glucose, Dipstick Normal (Normal); Ketone-Dipstick 5 mg/dl (Negative); Leukocyte Esterase-Dipstick 100 /ul (Negative); Nitrite-Dipstick Negative (Negative); Occult Blood-Urine 10 /ul (Negative); Protein-Dipstick 30 mg/dl (Negative); Specific Gravity, Urine 1.015 (1.002-1.030); Urine Bilirubin Dipstick Negative (Negative); Urine Clarity Sl. Cloudy (Clear); Urine Urobilinogen 1 mg/dl (Normal)
[2019-08-01] MEDS: 0.9% Normal Saline 1,000 ML 150 ML IV (13:11)
[2019-08-01] MEDS: Ondansetron 4 MG/2 ML Vial IV (13:12)
[2019-08-01] MEDS: Morphine 4 MG/ML Syringe IV (13:12)
[2019-08-01 13:17] VITALS: BP 154/108; PULSE 104; RESP 16; O2SAT 96
[2019-08-01 13:18] LABS: Bacteria 3+ /hpf (None Seen); Squamous Epithelial Cells - UA 5-10 SEEN /hpf (5-10)
[2019-08-01 13:21] LABS: Amorphous Sediment 1+; Renal Epithelial Cells 0-5 SEEN /hpf (0-5)
[2019-08-01 13:22] LABS: White Blood Cells 0-5 SEEN /hpf (0-5)
[2019-08-01 13:26] LABS: Absolute Lymphocyte Count 4.24 X10^3/uL (0.83-4.51); Absolute Neutrophil Count 9.3 X10^3/uL (2.0-7.7); Basophil# 0.08 X10^3/uL; Basophil% 0.5 % (0-1); Eosinophil# 0.73 X10^3/uL; Eosinophils% 4.8 % (0-5); Hematocrit 40.5 % (37-47); Hemoglobin 13.2 g/dL (12.0-15.0); Lymphocyte # 4.24 X10^3/ul (4.0); Mean Corp Hgb Conc 32.6 g/dL (32-36); Mean Corpuscular Volume 85.8 fL (81-99); Monocyte# 0.73 X10^3/uL; Monocyte% 4.8 % (0-10); NRBC Flagged by Analyzer 0 % (0-5); Neutrophil # 9.31 X10^3/uL (2.7-7.7); Neutrophil % 61.7 % (47-70); POSITIVE MORPHOLOGY YES; Platelet Count 470 K/mm3 (150-450); RBC Distribution Width CV 13.5 % (11.6-14.6); RBC Distribution Width SD 42.2 fl (35.1-43.9); Red Blood Count 4.72 M/mm3 (4.2-5.4); White Blood Count 15.1 K/mm3 (4.4-11.0)
[2019-08-01 13:33] LABS: Internal QC Validated? YES +Cl - CLEAR BKGD; Pregnancy, Serum, hCG Quali. NEGATIVE Negative
[2019-08-01 13:36] LABS: Anion Gap 7 (5-15); BUN 11 mg/dL (7-18); Calcium,Total 8.9 mg/dL (8.5-10.1); Chloride 106 mmol/L (98-107); Creatinine, Serum 0.92 mg/dL (0.55-1.02); EST Glomerular Filtration Rate 72 mL/min (>60); Est Glom Filt Rate - Afr Amer 87 mL/min (>60); Estimated Creatinine Clearance 61.95 ml/min; Glucose 82 mg/dL (74-106); Potassium 3.5 mmol/L (3.5-5.1); Sodium Level 139 mmol/L (136-145)
[2019-08-01 13:40] LABS: Differential Indicated SCAN CRITERIA MET
[2019-08-01 15:00] VITALS: RESP 16
[2019-08-01 15:42] VITALS: BP 140/110; PULSE 94; RESP 16; O2SAT 97
--- NOTE | 2019-08-01 15:43 | ED.RN ---
REVIEWED D/C INSTRUCTIONS, FOLLOW UP CARE, PRESCRIPTION, AND S/S THAT WOULD WARRANT A RETURN TO THE ED WITH PT. PT VERBALIZED AN UNDERSTANDING AND DENIES FURTHER QUESTIONS FOR THIS RN. PT SKIN P/W/D, RESP EVEN AND UNLABORED, PT A&O X 3, NO DISTRESS NOTED. PT AMBULATED OUT OF ED, GAIT STEADY.
== END 2019-08-01 15:44 | disposition home or self-care (01) ==
PROVIDERS: Emergency Provider Emergency Medicine; PCP Internal Medicine
DX: R10.32 Left lower quadrant pain (principal); R19.7 Diarrhea, unspecified; I11.0 Hypertensive heart disease with heart failure; I50.9 Heart failure, unspecified; M79.7 Fibromyalgia; Z87.891 Personal history of nicotine dependence; Z88.3 Allergy status to other anti-infective agents
CPT/HCPCS: 74177; 80048; 81001; 84703; 85025; 96361; 96374; 96375; 99283; J7030; Q9967; A4216; J2405

== ENCOUNTER → 2019-09-22 16:06 | Outpatient (CLI) | payer OTHER, SELFPAY ==
[2019-09-24 16:09] LABS: Endomysial Antibody IgA Negative (Negative)
[2019-09-24 18:22] LABS: Immunoglobulin A 191 mg/dL (87-352); t-Transglutaminase IgA <2 U/mL (0-3)
== END ==
PROVIDERS: PCP Internal Medicine; Referring Provider Internal Medicine Gastroenterology; Visit Provider Internal Medicine Gastroenterology
DX: R19.7 Diarrhea, unspecified (principal); R10.84 Generalized abdominal pain
CPT/HCPCS: 36415; 82784; 83516; 86140; 86255

== ENCOUNTER → 2019-10-02 15:16 | Outpatient (CLI) | payer OTHER, SELFPAY ==
--- NOTE | 2019-10-02 | COLBX_PTH ---
PATIENT: HAMLET SAMUEL LOC: [facility] U#:[id number] AGE/SX: 45/F ROOM: RE10/02/[address]: Dr. Rebel Vigil MD : 1980 BED: DIS: SPEC #: [id number] RECD: 10/02/19 14:51 STATUS: ERIC LYNDA #: [id number] AMALIA: 10/02/19 00:[address]: Rebel Vigil DEPT: SURGICAL PATHOLOGY RECD BY: Josef Mahmood ENTERED: 10/05/19 08:22 SP TYPE: COLON BX OTHR DR: Dr. Stephanie Villalpando, [facility], [place] Tissues: A - Ileum, NOS B - COLON BIOPSY Procedures: Trichrome (control) Special Stain Group II Surgery Specimen Level IV HEADER OPERATION: Colonoscopy with biopsies PRE-OP DIAGNOSIS: Diarrhea TISSUE SUBMITTED: A - Terminal ileum biopsies, rule out Crohn's, B - Right and left colon biopsies, rule out microscopic colitis MICROSCOPIC DIAGNOSIS A. Terminal ileum, biopsy: A fragment of small intestinal mucosa, no pathologic diagnosis. B. Right and left colon, biopsy: Fragments of colonic mucosa with changes consistent with collagenous colitis. See comment. SJ:doris 10/06/19 COMMENT B. Trichrome stain with matched control is used in the evaluation of the specimen and shows focal thickening of subepithelial collagen band. Mild increase of eosinophils are also noted suspicious for eosinophilic gastroenteritis. Correlation with clinical, endoscopic findings and appropriate follow up are necessary. This case has been reviewed in consultation with Dr. Oconnell who concurs with the above diagnosis. MICROSCOPIC DESCRIPTION Slides are reviewed. GROSS DESCRIPTION A - Received in fixative is one container labeled with the patient's name and designated terminal ileum biopsy. The specimen consists of one irregular fragment of light christine soft tissue that measures 0.5 x 0.3 x 0.1 cm. The specimen is totally submitted in one cassette. B - Received in fixative is one container labeled with the patient's name and designated right and left colon biopsies. The specimen consists of multiple irregular fragments of light christine soft tissue that in aggregate measure 1.5 x 0.6 x 0.1 cm. The specimen is totally submitted in one cassette. / VELMA:doris 10/05/19 TC:3 CPT: 15819 x2, 97802
== END ==
PROVIDERS: PCP Internal Medicine; Referring Provider Internal Medicine Gastroenterology; Visit Provider Internal Medicine Gastroenterology
DX: K52.9 Noninfective gastroenteritis and colitis, unspecified (principal)
CPT/HCPCS: 88305; 88313

== ENCOUNTER 2019-12-02 16:30 | Outpatient (RCR) | payer SELFPAY | END 2019-12-02 19:00 | disposition home or self-care (01) | LOC: PT 16:30 | PROVIDERS: PCP Internal Medicine | DX: M54.5 Low back pain (principal) ==

== ENCOUNTER 2020-03-01 13:25 | Outpatient (RCR) | payer SELFPAY ==
[2020-02-22 11:08] VITALS: BMI 37.5
== END 2020-03-01 19:00 | disposition home or self-care (01) ==
LOC: PT 13:25
PROVIDERS: PCP Internal Medicine
DX: Z00.00 Encounter for general adult medical examination without abnormal findings (principal)

== ENCOUNTER → 2020-07-05 16:32 | Outpatient (CLI) | payer OTHER, SELFPAY ==
[2020-04-28 15:48] VITALS: BMI 37.6
[2020-07-08 03:07] LABS: QNTFERON TB Mitogen Value > 10.00 IU/mL (.); QNTFERON TB Nil Value 0 IU/mL (.); QNTFERON TB1+ Ag Value 0.03 IU/mL (.); QNTFERON TB2+ Ag Value 0 IU/mL (.)
[2020-07-08 08:41] LABS: QNTIFERON TB Positive Criteria Negative (Negative)
== END ==
PROVIDERS: PCP Internal Medicine; Referring Provider Physician Assistant Medical; Visit Provider Physician Assistant Medical
DX: L40.0 Psoriasis vulgaris (principal); L60.8 Other nail disorders; Z79.899 Other long term (current) drug therapy
CPT/HCPCS: 36415; 86480

== ENCOUNTER 2020-09-27 08:00 | Outpatient (RCR) | payer OTHER, SELFPAY ==
[2020-04-28 15:48] VITALS: BMI 37.6
== END 2020-09-27 19:00 | disposition home or self-care (01) ==
LOC: PT 08:00
PROVIDERS: PCP Internal Medicine
DX: Z00.00 Encounter for general adult medical examination without abnormal findings (principal)

== ENCOUNTER → 2020-12-20 | Outpatient (CLI) | payer OTHER, SELFPAY ==
[2020-12-23 08:09] LABS: Chlamydia By Nucleic Acid AMP Negative (Negative)
[2020-12-23 13:25] LABS: Gonococcus By Nucleic Acid AMP Negative (Negative)
[2020-12-26 17:21] LABS: HPV APTIMA, High Risk Negative (Negative)
== END | disposition home or self-care (01) ==
LOC: LABSPEC 16:12
PROVIDERS: PCP Internal Medicine; Referring Provider Nurse Practitioner Women's Health; Visit Provider Nurse Practitioner Women's Health
DX: Z01.419 Encounter for gynecological examination (general) (routine) without abnormal findings (principal); Z11.3 Encounter for screening for infections with a predominantly sexual mode of transmission
CPT/HCPCS: 87491; 87591; 87624; 88175; G0145

== ENCOUNTER → 2021-02-02 16:23 | Outpatient (CLI) | payer OTHER, SELFPAY ==
--- NOTE | 2021-02-02 16:18 | BI_ITS ---
MAMMOGRAPHY - BILATERAL SCREENING REASON FOR EXAM: Female, 41 years old. Routine annual screening examination. PERTINENT HISTORY: Non-contributory. TECHNIQUE: Digital bilateral breast ya (3D mammographic acquisition) in the CC and MLO projections. 2-D mediolateral oblique (MLO) and craniocaudad (CC) views of both breasts were obtained. CAD: Full Field Digital Mammography with Computer Added Detection was performed. COMPARISON: Comparison is made with prior study dated 08/28/2018. FINDINGS: Breast Composition: The breasts are almost entirely fatty. There are no dominant masses or suspicious calcifications. No other significant abnormalities are identified. There has been no significant change since the prior study. BI/SCRN MAMM (CAD)W/YA BILAT IMPRESSION: Stable bilateral screening mammogram. Yearly follow-up mammogram recommended. (A) ASSESSMENT CATEGORY: BIRADS Category 1: Negative. A letter regarding these results will be sent to the patient by the facility within 30 days. Approximately 10% of breast cancers are not detected by mammography. A normal mammogram should not delay biopsy of a clinically suspicious abnormality. [id number] Electronically Signed: John Cordova MD at 8:28 EST , Service support ,
== END ==
PROVIDERS: PCP Internal Medicine; Referring Provider Nurse Practitioner Women's Health; Visit Provider Nurse Practitioner Women's Health
DX: Z12.31 Encounter for screening mammogram for malignant neoplasm of breast (principal)
CPT/HCPCS: 77063; 77067

== ENCOUNTER 2021-03-23 17:47 | Outpatient (CLI) | payer OTHER, SELFPAY ==
--- NOTE | 2021-03-23 18:05 | RAD_ITS ---
STUDY: X-RAY - PELVIS AND LEFT HIP REASON FOR EXAM: Female, 41 years old. Technologist Notes pt states left hip pain after injury walking a dog x 3 days ago TECHNIQUE: XR Hip Unilateral with Pelvis when performed; 2-3 Views COMPARISON: None. FINDINGS: There is a non-specific bowel gas pattern. Normal visualized soft tissue structures. Normal bilateral iliac wings, sacroiliac joints and visualized sacrum. Normal bilateral superior and inferior pubic rami. Normal pubic symphysis. Normal bilateral ischial tuberosities. Normal visualized femoral head. Normal acetabulum. Normal hip joint. RAD/HIP, UNI W/ Pelvis 2-3 Views IMPRESSION: There are no acute findings Electronically Signed: Jossue Pereira MD at 20:15 EST , Service support ,
== END 2021-03-23 23:59 | disposition short-term general hospital (02) ==
LOC: RAD 17:48
PROVIDERS: PCP Internal Medicine; Visit Provider Physician Assistant
DX: M25.552 Pain in left hip (principal)
CPT/HCPCS: 73502

== ENCOUNTER 2021-05-31 18:30 | Outpatient (RCR) | payer OTHER, SELFPAY | END 2021-05-31 19:00 | disposition home or self-care (01) | LOC: PT 18:30 | PROVIDERS: PCP Internal Medicine | DX: Z00.00 Encounter for general adult medical examination without abnormal findings (principal) ==

== ENCOUNTER → 2021-12-01 | Outpatient (CLI) | payer OTHER, SELFPAY ==
[2021-12-05 15:08] LABS: QNTFERON TB Mitogen Value > 10.00 IU/mL (.); QNTFERON TB Nil Value 0.01 IU/mL (.); QNTFERON TB1+ Ag Value 0.03 IU/mL (.); QNTFERON TB2+ Ag Value 0.03 IU/mL (.)
[2021-12-07 12:49] LABS: QNTIFERON TB Positive Criteria Negative (Negative)
== END | disposition home or self-care (01) ==
LOC: MTLAB 16:09
PROVIDERS: PCP Internal Medicine; Referring Provider Physician Assistant Medical; Visit Provider Physician Assistant Medical
DX: L40.0 Psoriasis vulgaris (principal); L40.59 Other psoriatic arthropathy; Z79.899 Other long term (current) drug therapy
CPT/HCPCS: 36415; 86480

== ENCOUNTER 2022-01-03 18:30 | Outpatient (RCR) | payer OTHER, SELFPAY ==
--- NOTE | 2021-10-03 09:29 | HP.PTEVAL_ITS ---
Patient's Visit Information HAMLET SAMUEL is a 41 year old F referred to Physical Therapy by Self Referred with a diagnosis of . Date of Evaluation: 10/03/21 Physical Therapist: Ady Mckenzie DPT - Visit Plan Frequency: 1x/Week Duration: PRN Plan: Start with Dn to B cervical erector spinea, B lumbar erector spinae, B UT and B lateral epicondyles. - Subjective Pt. is here today for her self pay Dn eval. Pt. is known to this PT. She is ove rall doing well, but feels tight in B UTs, B cervical spine, pain in B lateral epicondyles and stiffness in her low back. She reports being active, and just feeling tight. No other injuries, not overly painful today. Pt. 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 No NT, no radicular symptoms. No , no fear of needles. Pt. request to not inform physician at this point in time. - Objective Pt. is tight in B UT, B cervical erector spinae with rotation, Lumbar extensors limiting flexion and has slight pain to palpation of B lateral epicondyles. No signs of more sinister injury rather than just muscle tightness. - Balance/Special Test Scores Oswestry Neck Score: 3 - Goals Goal 1:: Pt. to report overall decreased tightness in cervical and lumbar musculature. Goal Time Frame: 2-4 Weeks - Rehabilitation Potential Rehabilitation Potential: Excellent - Anticipated Interventions Patient/Client Instruction: Educate patient on: Condition, Plan of Care For the Purpose of:: To facilitate caregiver knowledge, To improve self management, To prevent re-injury, To improve ability to perform tasks related to life management Manual Therapy Techniques to Include: Functional dry needling, Soft tissue mobilization For the Purpose of:: To decrease pain, To decrease swelling/inflammation, To improve nutrient delivery to tissue, To decrease soft tissue restriction, To increase flexibility/ROM Thank you for the opportunity to evaluate your patient. For Medicare and Medicare HMO plans, please review the plan of care and approve it. It will need to be FAXED BACK to us at [phone] for Medicare purposes. For Medicare only, by signing this I certify the plan of care. Please let me know if there are questions or concerns regarding this plan of care. Physician Signature: Date:
== END 2022-01-03 19:00 | disposition home or self-care (01) ==
LOC: PT 18:30
PROVIDERS: PCP Internal Medicine
DX: Z00.00 Encounter for general adult medical examination without abnormal findings (principal)

== ENCOUNTER → 2022-08-30 | Outpatient (CLI) | payer OTHER, SELFPAY ==
--- NOTE | 2022-08-30 11:49 | BI_ITS ---
MAMMOGRAPHY - BILATERAL SCREENING REASON FOR EXAM: Female, 42 years old. Routine annual screening examination. PERTINENT HISTORY: Mother with breast cancer. TECHNIQUE: Digital bilateral breast ya (3D mammographic acquisition) in the CC and MLO projections. 2-D mediolateral oblique (MLO) and craniocaudad (CC) views of both breasts were obtained. CAD: Full Field Digital Mammography with Computer Added Detection was performed. COMPARISON: Comparison is made with prior study February 02, 2021 and August 28, 2018. FINDINGS: Breast Composition: The breasts are almost entirely fatty. There are no dominant masses or suspicious calcifications. Stable small left axillary lymph nodes. No other significant abnormalities are identified. There has been no significant change since the prior study. BI/SCRN MAMM (CAD)W/YA BILAT IMPRESSION: Stable bilateral screening mammogram. Yearly follow-up mammogram recommended. (A) ASSESSMENT CATEGORY: BIRADS Category 2: Benign. A letter regarding these results will be sent to the patient by the facility within 30 days. Approximately 10% of breast cancers are not detected by mammography. A normal mammogram should not delay biopsy of a clinically suspicious abnormality. [id number] Electronically Signed: John Cordova MD at 12:52 EDT ,
== END | disposition home or self-care (01) ==
LOC: OPBI 11:48
PROVIDERS: PCP Internal Medicine; Referring Provider Nurse Practitioner Women's Health; Visit Provider Nurse Practitioner Women's Health
DX: Z12.31 Encounter for screening mammogram for malignant neoplasm of breast (principal); Z80.3 Family history of malignant neoplasm of breast
CPT/HCPCS: 77063; 77067

== ENCOUNTER → 2022-10-03 | Outpatient (CLI) | payer OTHER, SELFPAY ==
[2022-10-03 12:26] LABS: Absolute Lymphocyte Count 4.43 X10^3/uL (0.83-4.51); Absolute Neutrophil Count 11.2 X10^3/uL (2.0-7.7); Basophil# 0.16 X10^3/uL; Basophil% 0.9 % (0-1); Eosinophil# 1.46 X10^3/uL; Eosinophils% 7.8 % (0-5); Hematocrit 52.4 % (37-47); Hemoglobin 17.3 g/dL (12.0-15.0); Lymphocyte # 4.43 X10^3/ul (0.83-4.51); Lymphocyte % 23.8 % (19-41); Mean Corpuscular Hgb 28.4 pg (27.0-32.0); Mean Corpuscular Volume 85.9 fL (81-99); Mean Platelet Vol. 9.1 fl (6.2-12.0); Monocyte# 1.23 X10^3/uL; Monocyte% 6.6 % (0-10); NRBC Flagged by Analyzer 0 % (0-5); Neutrophil # 11.24 X10^3/uL (2.7-7.7); Neutrophil % 60.5 % (47-70); Platelet Count 638 K/mm3 (150-450); RBC Distribution Width CV 14.4 % (11.6-14.6); White Blood Count 18.6 K/mm3 (4.4-11.0)
[2022-10-03 13:09] LABS: Anion Gap 8 (5-15); BUN 21 mg/dL (7-18); BUN/Creat Ratio 19.8 RATIO (10-20); Calcium,Total 10.5 mg/dL (8.5-10.1); Chloride 101 mmol/L (98-107); Creatinine, Serum 1.06 mg/dL (0.55-1.02); EST Glomerular Filtration Rate 60 mL/min (>60); Est Glom Filt Rate - Afr Amer 73 mL/min (>60); Glucose 114 mg/dL (74-106); Magnesium 2.3 mg/dL (1.6-2.6); Potassium 4.2 mmol/L (3.5-5.1); Sodium Level 135 mmol/L (136-145)
== END | disposition home or self-care (01) ==
LOC: LAB 11:52
PROVIDERS: PCP Internal Medicine; Referring Provider Nurse Practitioner Gerontology; Visit Provider Nurse Practitioner Gerontology
DX: I10 Essential (primary) hypertension (principal); R00.0 Tachycardia, unspecified
CPT/HCPCS: 36415; 80048; 83735; 84443; 85025

== ENCOUNTER → 2022-10-08 | Outpatient (CLI) | payer OTHER, SELFPAY | END | disposition home or self-care (01) | LOC: PSN 12:24 | PROVIDERS: PCP Internal Medicine; Referring Provider Nurse Practitioner Gerontology; Visit Provider Nurse Practitioner Gerontology | DX: R00.0 Tachycardia, unspecified (principal) | CPT/HCPCS: 93225; 93226 ==

== ENCOUNTER → 2022-10-09 | Outpatient (CLI) | payer OTHER, SELFPAY ==
--- NOTE | 2022-10-09 13:59 | ECHOD_ITS ---
Reason For Study: CMP Procedure This was a 2D Doppler, Color Flow transthoracic echocardiogram. The study was technically difficult. Contrast injection was performed. Exam performed in department. Left Ventricle Normal LV size. Left ventricular systolic function is normal. The estimated ejection fraction is 60 %. Stage 1 diastolic dysfunction. No regional wall motion abnormalities noted. Right Ventricle Normal RV size. Atria Normal left atrium. Normal right atrium. Mitral Valve Normal mitral valve. Tricuspid Valve Normal tricuspid valve. Aortic Valve Normal aortic valve. Trisinus/trileaflet aortic valve. Pulmonic Valve Normal pulmonic valve. Great Vessels Normal aortic root. The pulmonary artery is normal size. Normal inferior vena cava. Pericardium/Pleural No pericardial effusion. Medication 22 gauge I.V. with prn adaptor inserted into right arm. Diluted definity 2ml given slow IV push to enhance endocardial definition. MMode/2D Measurements & Calculations LVIDd: 4.5 cm IVSd: 1.0 cm Ao root diam: 3.3 cm LVIDs: 3.4 cm LVPWd: 1.1 cm FS: 24.3 % LAV(MOD-bp): 53.5 ml LVAd ap4: 31.9 cm2 SV(MOD-sp4): 52.3 ml LAV(MOD-bp) Indexed: 28.8 ml/m2 LVLd ap4: 8.3 cm LAV(MOD-sp2): 55.8 ml EDV(MOD-sp4): 99.4 ml LAV(MOD-sp4): 45.9 ml EDV(sp4-el): 104.3 ml LVAs ap4: 19.2 cm2 LVLs ap4: 6.6 cm ESV(MOD-sp4): 47.1 ml ESV(sp4-el): 47.2 ml EF(MOD-sp4): 52.6 % EF(sp4-el): 54.7 % SV(sp4-el): 57.0 ml LA A4 area: 17.4 cm2 LA dimension(2D): 4.1 cm RA A4 area: 8.7 cm2 TAPSE: 1.5 cm Time Measurements MV dec time: 0.09 sec Doppler Measurements & Calculations MV E max mayur: 63.9 cm/sec Lat Peak E' Mayur: 11.4 cm/sec Med Peak E' Mayur: 5.6 cm/sec MV A max mayur: 106.3 cm/sec E/E' lat: 5.6 E/E' med: 11.5 MV E/A: 0.60 MV V2 max: 104.9 cm/sec MV dec slope: 725.3 cm/sec2 Ao V2 max: 148.4 cm/sec MV max P.4 mmHg Ao max P.9 mmHg MV V2 mean: 72.3 cm/sec Ao V2 mean: 103.0 cm/sec MV mean P.3 mmHg Ao mean P.8 mmHg MV V2 VTI: 23.9 cm Ao V2 VTI: 27.8 cm AV (velocity ratio): 0.88 LV V1 max: 123.9 cm/sec PA V2 max: 101.0 cm/sec LV V1 max P.1 mmHg PA V2 mean: 76.1 cm/sec LV V1 mean P.4 mmHg LV V1 mean: 87.1 cm/sec LV V1 VTI: 24.5 cm ECHO/Echo Complete W/ Contrast Interpretation Summary Normal LV size. Left ventricular systolic function is normal. The estimated ejection fraction is 60 %. Stage 1 diastolic dysfunction. Ordering Physician: Sumaya Chirinos Referring Physician: Sumaya Chirinos Performed By: Tasia Sawyer RCS
== END | disposition home or self-care (01) ==
LOC: CVS 13:58
PROVIDERS: PCP Internal Medicine; Referring Provider Nurse Practitioner Gerontology; Visit Provider Nurse Practitioner Gerontology
DX: I42.8 Other cardiomyopathies (principal)
CPT/HCPCS: 93306; Q9957; A4216; C8929

== ENCOUNTER → 2023-07-08 | Outpatient (CLI) | payer OTHER, SELFPAY ==
[2023-07-08 08:11] LABS: Mucous, Urine 0 SEEN /hpf (<or=2+); Red Blood Cells-Urine 0 SEEN /hpf (0-5)
[2023-07-08 10:29] LABS: Absolute Lymphocyte Count 4.47 X10^3/uL (0.83-4.51); Absolute Neutrophil Count 10.4 X10^3/uL (2.0-7.7); Basophil% 0.6 % (0-1); Eosinophil# 1.29 X10^3/uL; Eosinophils% 7.5 % (0-5); Hematocrit 39.3 % (37-47); Hemoglobin 13.2 g/dL (12.0-15.0); Lymphocyte # 4.47 X10^3/ul (0.83-4.51); Lymphocyte % 26.1 % (19-41); Mean Corp Hgb Conc 33.6 g/dL (32-36); Mean Corpuscular Volume 83.4 fL (81-99); Mean Platelet Vol. 9.3 fl (6.2-12.0); Monocyte# 0.86 X10^3/uL; NRBC Flagged by Analyzer 0 % (0-5); Neutrophil # 10.35 X10^3/uL (2.7-7.7); Neutrophil % 60.5 % (47-70); Platelet Count 475 K/mm3 (150-450); RBC Distribution Width CV 13.2 % (11.6-14.6); RBC Distribution Width SD 40.5 fl (35.1-43.9); Red Blood Count 4.71 M/mm3 (4.2-5.4); White Blood Count 17.1 K/mm3 (4.4-11.0)
[2023-07-08 11:02] LABS: Color, Urine Yellow (Yellow); Glucose, Dipstick Normal (Normal); Hemoglobin A1c 5.6 % (3.8-5.6); Ketone-Dipstick Negative (Negative); Leukocyte Esterase-Dipstick 25 /ul (Negative); Nitrite-Dipstick Negative (Negative); Occult Blood-Urine Negative /ul (Negative); Protein-Dipstick 15 mg/dl (Negative); Specific Gravity, Urine 1.015 (1.002-1.030); Urine Bilirubin Dipstick Negative (Negative); Urine Clarity Sl. Cloudy (Clear); Urine Urobilinogen Normal (Normal)
[2023-07-08 11:10] LABS: Bacteria 1+ /hpf (None Seen); Squamous Epithelial Cells - UA 0-5 SEEN /hpf (5-10); White Blood Cells 0-5 SEEN /hpf (0-5)
[2023-07-08 11:21] LABS: ALB/GLOB Ratio 0.9 RATIO (0.9-2.4); AST(SGOT) 16 U/L (15-37); Alanine Aminotransfer ALT/SGPT 19 U/L (13-56); Albumin, Serum 3.1 g/dL (3.2-5.0); Alkaline Phosphatase 66 U/L (45-117); Anion Gap 7 (5-15); BUN 16 mg/dL (7-18); BUN/Creat Ratio 23.3 RATIO (10-20); Calcium,Total 8.6 mg/dL (8.5-10.1); Chloride 106 mmol/L (98-107); Cholesterol 145 mg/dL (200); Creatinine, Serum 0.69 mg/dL (0.55-1.02); EST Glomerular Filtration Rate 99 mL/min (>60); Est Glom Filt Rate - Afr Amer 120 mL/min (>60); Globulin 3.5 g/dL (2.2-4.2); Glucose 111 mg/dL (74-106); High Density Lipoprotein 39 mg/dL; Potassium 3.3 mmol/L (3.5-5.1); Protein, Total 6.6 g/dL (6.4-8.2); Sodium Level 137 mmol/L (136-145); Thyroid Stim Hormone (TSH) 4.99 uIU/mL (0.358-3.74); Triglycerides 238 mg/dL; Very Low Density Lipoprotein 48 mg/dL (5-40)
[2023-07-11 13:08] LABS: Vitamin D 1,25-Dihydroxy 47.6 pg/mL (24.8-81.5)
== END | disposition home or self-care (01) ==
PROVIDERS: PCP Internal Medicine; Referring Provider Internal Medicine; Visit Provider Internal Medicine
DX: E16.2 Hypoglycemia, unspecified (principal); E78.00 Pure hypercholesterolemia, unspecified
CPT/HCPCS: 36415; 80053; 80061; 81001; 82652; 83036; 84443; 85025

== ENCOUNTER 2023-07-25 14:42 | Emergency (ER) | payer OTHER, SELFPAY ==
[2023-07-25 14:42] VITALS: BP 147/99; PULSE 127; RESP 18; TEMP 36.6; O2SAT 98; BMI 36.6
--- NOTE | 2023-07-25 15:08 | EKG12_ITS ---
Test Reason : HIGH HR Blood Pressure : / mmHG Vent. Rate : 112 BPM Atrial Rate : 112 BPM P-R Int : 144 ms QRS Dur : 078 ms QT Int : 340 ms P-R-T Axes : 032 -20 037 degrees QTc Int : 464 ms Sinus tachycardia Minimal voltage criteria for LVH, may be normal variant ( R in aVL ) Cannot rule out Anterior infarct , age undetermined Abnormal ECG Confirmed by Antonio Vickers ([id number]), design editor ROSA DOWNING ([id number]) on 07/26/2023 10:14:00 AM Referred By: Confirmed By:Antonio Vickers
--- NOTE | 2023-07-25 15:10 | EDS_ITS ---
HPI History of Present Illness Chief Complaint: General Illness Detail of Chief Complaint: Tachycardia and swelling Informant: patient Narrative Narrative: Patient presents to the ER with complaint of tachycardia and sweating. She is noticed the symptoms over the last 48 hours. She had heart rates at home based on her watch in the 150s frequently at rest. She denies recent travel or surgery. She denies chest pain or shortness of breath. She denies recent illness. 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 She denies nausea or vomiting or diarrhea. She denies fevers or chills or recent illness. She denies urinary symptoms. Patient has history of slightly elevated TSH. Also has been seeing [facility]S INVESTIGATOR to see if she is going through menopause. [facility] Medical History Alcohol abuse Thoracic myofascial strain Chest wall muscle strain Strain of left hip History of alcohol abuse PMDD (premenstrual dysphoric disorder) Bipolar disorder Ovarian cyst Hypokalemia Shingles Arthritis Syncope Fibromyalgia Chronic systolic (congestive) heart failure Obesity AVNRT (AV nicole re-entry tachycardia) Tricuspid valve insufficiency Nonrheumatic mitral (valve) insufficiency Essential hypertension Non-ischemic cardiomyopathy Home Medications ?Medication ?Instructions ?Recorded ?Last Taken ?Type cyclobenzaprine 10 mg tablet 10 mg PO TID PRN muscle spasm #14 03/23/21 Unknown Rx tabs guselkumab 100 mg/mL subcutaneous 100 mg subcut Q8W 10/03/22 Unknown History auto-injector (Tremfya) losartan 100 mg tablet 100 mg PO DAILY #90 tabs 10/12/22 Unknown Rx furosemide 40 mg tablet 40 mg PO .COMPLEX #180 tabs 12/13/22 Unknown Rx potassium chloride 20 mEq 40 meq (2 x 20 mEq) PO DAILY #180 01/29/23 Unknown Rx tablet,extended release(part/cryst) tabs sertraline 100 mg tablet 150 mg (1.5 x 100 mg) PO QDAY #45 07/16/23 Unknown Rx tabs NuvaRing 0.12 mg-0.015 mg/24 hr 1 vag ring vaginal Q4W #3 ea 07/23/23 Unknown Rx vaginal (etonogestrel-ethinyl estradiol) lorazepam 1 mg tablet (Ativan) 1 mg PO TID PRN anxiety #10 tabs 07/25/23 Unknown Rx Allergy/AdvReac Type Severity Reaction Status Date / Time ramipril Allergy Vomiting Verified 07/25/23 14:44 fluconazole (From Diflucan) AdvReac Nausea Verified 07/25/23 14:44 Family History Mother , stung by 24 yellowjackets age 61 Hypertension Breast cancer Arthritis Osteoporosis Other Alcoholism Anxiety Depression Diabetes Mental disorder Psychiatric care Surgical History History of left heart catheterization (11/05/12) Social History household members: significant other current occupational status: employed current occupation: [employer] history of recent travel: No sexually active: Yes Smoking Status: Former smoker alcohol intake: former details: 10 years sober substance use type: does not use what type of physical activity do you participate in: walking and yoga frequency: daily seatbelt use: never do you feel safe at home: Yes additional social history: single ROS ROS ED Review of Systems ROS Unobtainable: other Constitutional Constitutional ED: Reports lethargy and sweats; Denies chills, fever(s) or weight loss Eyes Eyes: Denies blurry vision, change in vision or diplopia ENT ENT ED: Denies rhinorrhea or sore throat Cardiovascular Cardiovascular: Reports racing heartbeat; Denies chest pain or orthopnea Respiratory/Chest Respiratory/Chest: Denies cough, dyspnea, dyspnea on exertion, orthopnea or sputum Gastrointestinal Gastrointestinal: Denies abdominal pain, diarrhea, nausea or vomiting Genitourinary Genitourinary ED: Denies dysuria, hematuria or urinary frequency Musculoskeletal Musculoskeletal: Denies arthralgias, back pain, myalgias or neck pain Integumentary Denies abscess, Abrasions or rash Neurologic Neurologic: Denies headache(s) or weakness Psychiatric Psychiatric: Denies anxiety, depression or suicidal thoughts Endocrine Endocrinology: Denies polydipsia, polyphagia or polyuria Hematologic/Lymphatic Hematologic/Lymphatic: Denies easy bleeding, easy bruising or lymphadenopathy Allergic/Immunologic Allergic/Immunologic ED: Denies mouth swelling, tongue swelling or urticaria EXAM Physical Exam Const Vital Signs: 07/25/23 14:42 07/25/23 15:08 07/25/23 15:42 Temperature 97.8 F Temperature Source Temporal Pulse Rate 127 H 98 Respiratory Rate 18 24 H Respiratory Effort Normal Respiratory Pattern Normal Blood Pressure 147/99 H 137/88 H Blood Pressure Mean 115 104 Pulse Ox 98 97 Oxygen Delivery Method Room Air Room Air 07/25/23 17:00 Temperature Temperature Source Pulse Rate 100 Respiratory Rate 25 H Respiratory Effort Respiratory Pattern Blood Pressure 142/96 H Blood Pressure Mean 111 Pulse Ox 92 Oxygen Delivery Method Room Air Positive well nourished and well developed General Appearance ED: well developed and NAD HEENT Reports TM's clear and moist mucous membranes normocephalic and atraumatic; Negative for trauma or tenderness Tympanic Membrane ED: Yes TM's clear Eyes PERRL and EOMs intact bilaterally General Eye ED: Negative for pale conjunctiva or scleral icterus Neck no lymphadenopathy, supple and no JVD General: Negative for tenderness Chest Wall inspection of chest normal and palpation of chest normal Chest: Negative for tenderness Resp normal respiratory effort and clear to auscultation bilaterally Effort and Inspection: Negative for respiratory distress or pain with movement Auscultation: Negative for rhonchi, wheezes or diminished lung sounds Cardio regular rhythm, S1 normal heart sound, S2 normal heart sound and no murmurs; Negative for regular rate Cardio Narrative: Tachycardia Peripheral Pulses: pulses 2+ throughout GI normal to inspection, nondistended, normoactive bowel sounds, soft to palpation, non-tender, non-distended and no masses Back/Spine no CVA tenderness and no thoracic nor lumbar tenderness Extremity normal to inspection General Extremety ED: Negative for edema General Extremity: Negative for edema Neuro oriented x3, CN's II-XII intact bilaterally, no sensory deficits noted and gait normal Sensorium / Orientation: awake, alert, oriented to person, oriented to place and oriented to time Motor Exam: strength 5/5 throughout and strength abnormal Psych mental status grossly normal Skin no rashes or lesions noted and no wounds MDM MDM MDM Narrative Medical decision making narrative: Patient presents with vague complaints of tachycardia and fatigue and sweating. Clinically she looks well however does hemoglobin anxious. She does have history of anxiety. Patient has had significant recent workup including Holter monitor and echocardiogram that was unremarkable. IV line established. EKG obtained arrival showed sinus rhythm with rate of [address] changes. CBC with differential showed an elevated white count of 15.1 and she chronically has an elevated WBC count. Hemoglobin 14 and platelet count of 508. Chemistries unremarkable. BUN 29 creatinine 1.14. hCG was negative. Urinalysis normal. Alcohol was 0. D-dimer normal less than 0.27. TSH was normal. Potassium slightly depressed at 3.3 and she does take daily potassium at home I did give her 40 mEq p.o. here. This point etiology of her tachycardia unclear I do suspect a component of anxiety. She does also have PTSD. Has been started relatively recently on sertraline and did okay for about a week. I will write her prescription for Ativan as needed. She will be discharged to home and advised to follow-up with her primary care physician within next 3 to 5 days. Also advised to follow-up with her psychiatrist. Lab Data Attestation: I reviewed the patient's lab results. Labs: Laboratory Results - last 24 hr 07/25/23 07/25/23 07/25/23 15:00 15:15 16:25 WBC 15.1 H RBC 5.05 Hgb 14.2 Hct 42.5 MCV 84.2 MCH 28.1 MCHC 33.4 RDW Std Deviation 42.5 RDW Coeff of [place] 13.9 Plt Count 508 H MPV 9.3 Immature Gran % (Auto) 0.300 Neut % (Auto) 64.3 Lymph % (Auto) 26.6 [place] % (Auto) 5.4 Eos % (Auto) 2.9 Baso % (Auto) 0.5 Absolute Neuts (auto) 9.7 H Absolute Lymphs (auto) 4.01 Nucleated RBC % 0 Atypical Lymphocytes 2+ Platelet Estimate MOD INC RBC Morphology N CHROM Anisocytosis RARE D-Dimer Quant (PE/DVT) < 0.27 L Sodium 135 L Potassium 3.3 L Chloride 104 Carbon Dioxide 23.0 Anion Gap 8 BUN 29 H Creatinine 1.14 H Estim Creat Clear Calc 64.18 Est GFR (MDRD) Af Amer 67 Est GFR (MDRD) Non-Af 55 L BUN/Creatinine Ratio 25.4 H Glucose 134 H Calcium 9.4 Total Bilirubin 0.40 AST 14 L ALT 16 Alkaline Phosphatase 67 Troponin I High Sens 3 Total Protein 7.7 Albumin 3.7 Globulin 4.0 Albumin/Globulin Ratio 0.9 TSH 1.76 Serum , Qual NEGATIVE Urine Color Yellow Urine Clarity Clear Urine pH 6.0 Ur Specific [place] 1.015 Urine Protein 15 H Urine Glucose (UA) Normal Urine Ketones Negative Urine Occult Blood Negative Urine Nitrite Negative Urine Bilirubin Negative Urine Urobilinogen Normal Ur Leukocyte Esterase 25 H Urine RBC 0 SEEN Urine WBC 0-5 SEEN Ur Squamous Epith Cells 0-5 SEEN Urine Bacteria RARE Urine Mucus 0 SEEN Ethyl Alcohol 07/25/23 16:57 WBC RBC Hgb Hct MCV MCH MCHC RDW Std Deviation RDW Coeff of [place] Plt Count MPV Immature Gran % (Auto) Neut % (Auto) Lymph % (Auto) [place] % (Auto) Eos % (Auto) Baso % (Auto) Absolute Neuts (auto) Absolute Lymphs (auto) Nucleated RBC % Atypical Lymphocytes Platelet Estimate RBC Morphology Anisocytosis D-Dimer Quant (PE/DVT) Sodium Potassium Chloride Carbon Dioxide Anion Gap BUN Creatinine Estim Creat Clear Calc Est GFR (MDRD) Af Amer Est GFR (MDRD) Non-Af BUN/Creatinine Ratio Glucose Calcium Total Bilirubin AST ALT Alkaline Phosphatase Troponin I High Sens Total Protein Albumin Globulin Albumin/Globulin Ratio TSH Serum , Qual Urine Color Urine Clarity Urine pH Ur Specific [place] Urine Protein Urine Glucose (UA) Urine Ketones Urine Occult Blood Urine Nitrite Urine Bilirubin Urine Urobilinogen Ur Leukocyte Esterase Urine RBC Urine WBC Ur Squamous Epith Cells Urine Bacteria Urine Mucus Ethyl Alcohol < 3.0 Radiography Diagnostic Testing: Clinical Impression(s) from Imaging Studies Chest X-Ray 07/25/23 15:45 IMPRESSION: No radiographic evidence of acute cardiopulmonary disease. Electronically Signed: Almas Cooley MD at 16:40 EDT , Discharge Plan Triage Chief Complaint: General Illness ED Provider: Rubin Simpson Dx/Rx/DC Orders Clinical Impression: Tachycardia, Anxiety Instructions: Understanding Tachycardia, ED Anxiety Reaction, ED Tachycardia: PAT Prescriptions: New lorazepam [Ativan] 1 mg tablet 1 mg PO TID PRN (Reason: anxiety) Qty: 10 0RF No Action cyclobenzaprine 10 mg tablet 10 mg PO TID PRN (Reason: muscle spasm) Qty: 14 0RF Tremfya 100 mg/mL auto-injector 100 mg subcut Q8W potassium chloride 20 mEq tablet,ER particles/crystals 40 meq PO DAILY Qty: 180 3RF etonogestrel-ethinyl estradiol [NuvaRing] 0.12-0.015 mg/24 hr ring 1 vag ring vaginal Q4W Qty: 3 4RF Rx Instructions: leave in 4 weeks, remove X 1 week, place new ring sertraline 100 mg tablet 150 mg PO QDAY Qty: 45 1RF losartan 100 mg tablet 100 mg PO DAILY Qty: 90 3RF furosemide 40 mg tablet 40 mg PO .COMPLEX Qty: 180 3RF Rx Instructions: 40 mg PO qd, may take 2nd tab if weight gain or edema Primary Care Provider: Stephanie Villalpando Referrals: Stephanie Villalpando DO [Primary Care Provider] - Print Language: Welsh
[2023-07-25] MEDS: 0.9% Normal Saline (1000mL) 1,000 ML 1000 ML IV (15:23)
[2023-07-25 15:42] VITALS: BP 137/88; PULSE 98; RESP 24; O2SAT 97
--- NOTE | 2023-07-25 15:45 | RAD_ITS ---
EXAM: XR CHEST, 1 VIEW CLINICAL INDICATION: tachycardia TECHNIQUE: Frontal view of the chest. COMPARISON: 07/18/2022 FINDINGS: LUNGS AND PLEURAL SPACES: Unremarkable. No consolidation or edema. No pneumothorax. No effusion. HEART: Unremarkable. Cardiac silhouette not enlarged. MEDIASTINUM: Central airways and mediastinal contour are unremarkable. BONES/JOINTS: Unremarkable. No acute fracture. SOFT TISSUES: Unremarkable. RAD/Chest 1 View (Portable) IMPRESSION: No radiographic evidence of acute cardiopulmonary disease. Electronically Signed: Almas Cooley MD at 16:40 EDT ,
[2023-07-25 15:55] LABS: Absolute Lymphocyte Count 4.01 X10^3/uL (0.83-4.51); Absolute Neutrophil Count 9.7 X10^3/uL (2.0-7.7); Basophil# 0.08 X10^3/uL; Basophil% 0.5 % (0-1); Eosinophil# 0.44 X10^3/uL; Eosinophils% 2.9 % (0-5); Hematocrit 42.5 % (37-47); Hemoglobin 14.2 g/dL (12.0-15.0); Lymphocyte # 4.01 X10^3/ul (0.83-4.51); Lymphocyte % 26.6 % (19-41); Mean Corp Hgb Conc 33.4 g/dL (32-36); Mean Corpuscular Hgb 28.1 pg (27.0-32.0); Mean Corpuscular Volume 84.2 fL (81-99); Mean Platelet Vol. 9.3 fl (6.2-12.0); Monocyte# 0.81 X10^3/uL; Monocyte% 5.4 % (0-10); NRBC Flagged by Analyzer 0 % (0-5); Neutrophil # 9.67 X10^3/uL (2.7-7.7); Neutrophil % 64.3 % (47-70); POSITIVE MORPHOLOGY YES; Platelet Count 508 K/mm3 (150-450); RBC Distribution Width CV 13.9 % (11.6-14.6); RBC Distribution Width SD 42.5 fl (35.1-43.9); Red Blood Count 5.05 M/mm3 (4.2-5.4); White Blood Count 15.1 K/mm3 (4.4-11.0)
[2023-07-25 16:00] LABS: Differential Indicated SCAN CRITERIA MET
[2023-07-25 16:07] LABS: ALB/GLOB Ratio 0.9 RATIO (0.9-2.4); AST(SGOT) 14 U/L (15-37); Alanine Aminotransfer ALT/SGPT 16 U/L (13-56); Albumin, Serum 3.7 g/dL (3.2-5.0); Alkaline Phosphatase 67 U/L (45-117); Anion Gap 8 (5-15); BUN 29 mg/dL (7-18); BUN/Creat Ratio 25.4 RATIO (10-20); Calcium,Total 9.4 mg/dL (8.5-10.1); Chloride 104 mmol/L (98-107); Creatinine, Serum 1.14 mg/dL (0.55-1.02); EST Glomerular Filtration Rate 55 mL/min (>60); Est Glom Filt Rate - Afr Amer 67 mL/min (>60); Estimated Creatinine Clearance 64.18 ml/min; Glucose 134 mg/dL (74-106); Potassium 3.3 mmol/L (3.5-5.1); Protein, Total 7.7 g/dL (6.4-8.2); Sodium Level 135 mmol/L (136-145); Thyroid Stim Hormone (TSH) 1.76 uIU/mL (0.358-3.74); Troponin-I HS 3 pg/mL (3.0-54.0)
[2023-07-25] MEDS: Potassium Chloride Oral Tablet 20 MEQ 40 MEQ PO (16:22)
[2023-07-25] MEDS: 0.9% Normal Saline (1000mL) 1,000 ML 999 ML IV (16:24)
[2023-07-25 16:27] LABS: Internal QC Validated? YES +Cl - CLEAR BKGD; Pregnancy, Serum, hCG Quali. NEGATIVE Negative
[2023-07-25 16:28] LABS: Record Kit Lot#, Serum Preg. 718089
[2023-07-25 16:32] LABS: Anisocytosis RARE; Atypical Lymphocyte 2+ %; Platelet Estimate MOD INC (ADEQ); Red Cell Morphology N CHROM NORMAL (NORM C&C)
[2023-07-25 16:39] LABS: Mucous, Urine 0 SEEN /hpf (<or=2+); Red Blood Cells-Urine 0 SEEN /hpf (0-5)
[2023-07-25 16:44] LABS: Color, Urine Yellow (Yellow); Glucose, Dipstick Normal (Normal); Ketone-Dipstick Negative (Negative); Leukocyte Esterase-Dipstick 25 /ul (Negative); Nitrite-Dipstick Negative (Negative); Occult Blood-Urine Negative /ul (Negative); Protein-Dipstick 15 mg/dl (Negative); Specific Gravity, Urine 1.015 (1.002-1.030); Urine Bilirubin Dipstick Negative (Negative); Urine Clarity Clear (Clear); Urine Urobilinogen Normal (Normal)
[2023-07-25 16:46] LABS: D-Dimer Quantitative (DVT/PE) < 0.27 FEU/ug/m (0.27-0.49)
[2023-07-25 17:00] VITALS: BP 142/96; PULSE 100; RESP 25; O2SAT 92
[2023-07-25 17:31] LABS: Squamous Epithelial Cells - UA 0-5 SEEN /hpf (5-10); White Blood Cells 0-5 SEEN /hpf (0-5)
[2023-07-25 17:32] LABS: Bacteria RARE /hpf (None Seen)
[2023-07-25 17:36] LABS: Alcohol, Blood (Medical)-Serum < 3.0 mg/dL
[2023-07-25 18:00] VITALS: BP 176/115; PULSE 106; RESP 18; O2SAT 96
[2023-07-25] MEDS: LORazepam 2 MG/ML Syringe 1 MG IV (18:11)
[2023-07-25 18:38] VITALS: BP 129/62; PULSE 101; RESP 16; TEMP 36.4; O2SAT 96
== END 2023-07-25 18:41 | disposition home or self-care (01) ==
PROVIDERS: Emergency Provider Emergency Medicine; PCP Internal Medicine; Visit Provider Emergency Medicine
DX: R00.0 Tachycardia, unspecified (principal); I11.0 Hypertensive heart disease with heart failure; I50.22 Chronic systolic (congestive) heart failure; F43.10 Post-traumatic stress disorder, unspecified; Z87.891 Personal history of nicotine dependence; Z79.899 Other long term (current) drug therapy
CPT/HCPCS: 71045; 80053; 80320; 81001; 84443; 84484; 84703; 85025; 85379; 87631; 93005; 96361; 96374; 99285; J7030; A4216; G0480

== ENCOUNTER → 2024-06-18 | Outpatient (CLI) | payer OTHER, SELFPAY ==
[2024-06-20 11:08] LABS: QNTFERON TB Mitogen Value > 10.00 IU/mL (.); QNTFERON TB Nil Value 0.02 IU/mL (.); QNTFERON TB1+ Ag Value 0.05 IU/mL (.); QNTFERON TB2+ Ag Value 0.04 IU/mL (.); QNTIFERON TB Positive Criteria Negative (Negative)
== END | disposition home or self-care (01) ==
LOC: MTLAB 14:58
PROVIDERS: PCP Internal Medicine; Referring Provider Physician Assistant Medical; Visit Provider Physician Assistant Medical
DX: L40.0 Psoriasis vulgaris (principal); L40.59 Other psoriatic arthropathy; D39.8 Neoplasm of uncertain behavior of other specified female genital organs; Z79.899 Other long term (current) drug therapy
CPT/HCPCS: 36415; 86480

== ENCOUNTER → 2024-09-25 | Outpatient (CLI) | payer OTHER, SELFPAY ==
--- NOTE | 2024-09-25 13:40 | BI_ITS ---
EXAM: SCRN MAMM (CAD)W/YA BILAT DATE: 09/25/2024 CLINICAL HISTORY: F, Age 44 y/o , SCREENING TECHNIQUE: SCRN MAMM (CAD)W/YA BILAT COMPARISON: Prior exam(s) dated 08/30/2022, 02/02/2021, 08/28/2018. FINDINGS: TISSUE DENSITY: The breasts are almost entirely fatty. Bilateral Breast Mammographic Findings: No significant masses, calcifications or other abnormalities are identified. BI/SCRN MAMM (CAD)W/YA BILAT IMPRESSION: The mammogram demonstrates that the patient has dense breasts. Supplemental scr eening with whole breast ultrasound or MRI may be considered for further evaluation. OVERALL FINAL ASSESSMENT BI-RADS 1: NEGATIVE. RECOMMENDATION: Routine annual follow-up in 1 Year A letter with findings and recommendations will be mailed to the patient. Reading Location: [id number]
== END | disposition home or self-care (01) ==
LOC: OPBI 13:36
PROVIDERS: PCP Internal Medicine; Referring Provider Nurse Practitioner Family; Visit Provider Nurse Practitioner Family
DX: Z12.31 Encounter for screening mammogram for malignant neoplasm of breast (principal)
CPT/HCPCS: 77063; 77067

== ENCOUNTER → 2024-09-30 | Outpatient (CLI) | payer OTHER, SELFPAY ==
[2024-10-02 20:08] LABS: Chlamydia By Nucleic Acid AMP Negative (Negative); Gonococcus By Nucleic Acid AMP Negative (Negative)
== END | disposition home or self-care (01) ==
LOC: LABSPEC 14:54
PROVIDERS: PCP Internal Medicine; Visit Provider Nurse Practitioner Family
DX: Z11.3 Encounter for screening for infections with a predominantly sexual mode of transmission (principal)
CPT/HCPCS: 87491; 87591

== ENCOUNTER → 2024-10-09 | Outpatient (CLI) | payer OTHER, SELFPAY ==
--- NOTE | 2024-10-09 12:59 | ECHOD_ITS ---
Reason For Study Reason For Study: ARRHYTHMIA Procedure This was a 2D Doppler, Color Flow transthoracic echocardiogram. Exam performed in department. Left Ventricle Normal LV size. Left ventricular systolic function is normal. The left ventricular ejection fraction is 60 %. Stage 1 diastolic dysfunction. No regional wall motion abnormalities noted. Right Ventricle Normal RV size. Normal systolic function. Atria Normal left atrium. Normal right atrium. Mitral Valve Normal mitral valve. Tricuspid Valve Normal tricuspid valve. Aortic Valve Trisinus/trileaflet aortic valve. Pulmonic Valve Normal pulmonic valve. Great Vessels Normal aortic root. The pulmonary artery is normal size. Inferior vena cava collapse with respiration. Pericardium/Pleural No pericardial effusion. MMode/2D Measurements & Calculations LVIDd: 3.6 cm IVSd: 0.89 cm Ao root diam: 3.7 cm LVIDs: 2.4 cm LVPWd: 1.0 cm RVDd: 2.5 cm FS: 33.5 % LAV(MOD-bp): 27.1 ml LVAd ap4: 22.0 cm2 LVAd ap2: 16.5 cm2 LAV(MOD-bp) Indexed: 14.7 ml/m2 LVLd ap4: 7.1 cm LVLd ap2: 6.8 cm LAV(MOD-sp2): 27.9 ml EDV(MOD-sp4): 56.5 ml EDV(MOD-sp2): 35.3 ml LAV(MOD-sp4): 26.2 ml EDV(sp4-el): 57.7 ml EDV(sp2-el): 34.0 ml LVAs ap4: 12.6 cm2 LVAs ap2: 9.3 cm2 LVLs ap4: 5.7 cm LVLs ap2: 5.5 cm ESV(MOD-sp4): 24.1 ml ESV(MOD-sp2): 14.3 ml ESV(sp4-el): 23.3 ml ESV(sp2-el): 13.5 ml EF(MOD-sp4): 57.3 % EF(MOD-sp2): 59.4 % EF(sp4-el): 59.7 % SV(MOD-sp4): 32.3 ml SV(MOD-sp2): 21.0 ml SV(sp4-el): 34.5 ml SI(MOD-sp4): 17.5 ml/m2 SI(MOD-sp2): 11.3 ml/m2 LA A4 area: 12.7 cm2 LA dimension(2D): 3.8 cm RA A4 area: 9.8 cm2 TAPSE: 1.8 cm Time Measurements MV dec time: 0.28 sec Doppler Measurements & Calculations MV E max mayur: 65.3 cm/sec Lat Peak E' Mayur: 11.8 cm/sec Med Peak E' Mayur: 7.1 cm/sec MV A max mayur: 77.1 cm/sec E/E' lat: 5.5 E/E' med: 9.2 MV E/A: 0.85 MV V2 max: 91.5 cm/sec MV P1/2t max mayur: 67.3 cm/sec Ao V2 max: 121.3 cm/sec MV max P.3 mmHg MV P1/2t: 78.2 msec Ao max P.9 mmHg MV V2 mean: 54.5 cm/sec Ao V2 mean: 93.8 cm/sec MV mean P.3 mmHg MV dec slope: 252.0 cm/sec2 Ao mean P.7 mmHg MV V2 VTI: 18.0 cm MVA(P1/2t): 2.8 cm2 Ao V2 VTI: 24.4 cm PA V2 max: 76.5 cm/sec TR max mayur: 219.3 cm/sec PA V2 mean: 55.7 cm/sec TR max P.2 mmHg ECHO/Echo Complete Interpretation Summary Normal LV size. Left ventricular systolic function is normal. The left ventricular ejection fraction is 60 %. Stage 1 diastolic dysfunction. Ordering Physician: Kvng Sainz Referring Physician: Stephanie Villalpando Performed By: Rachel Nascimento, RDCS, RVT
== END | disposition home or self-care (01) ==
LOC: CVS 12:59
PROVIDERS: PCP Internal Medicine; Referring Provider Internal Medicine Cardiovascular Disease; Visit Provider Internal Medicine Cardiovascular Disease
DX: I42.8 Other cardiomyopathies (principal)
CPT/HCPCS: 93306

== ENCOUNTER → 2024-12-29 | Outpatient (CLI) | payer OTHER, SELFPAY ==
[2024-12-31 05:07] LABS: QNTFERON TB Mitogen Value > 10.00 IU/mL (.); QNTFERON TB Nil Value 0.02 IU/mL (.); QNTFERON TB1+ Ag Value 0.02 IU/mL (.); QNTFERON TB2+ Ag Value 0.04 IU/mL (.); QNTIFERON TB Positive Criteria Negative (Negative)
== END | disposition home or self-care (01) ==
LOC: MTLAB 16:48
PROVIDERS: PCP Internal Medicine; Referring Provider Physician Assistant Medical; Visit Provider Physician Assistant Medical
DX: L40.0 Psoriasis vulgaris (principal)
CPT/HCPCS: 36415; 86480